=== PATIENT | male | born 1950 | race Caucasian/White ===

== ENCOUNTER → 2021-05-22 02:03 | Outpatient (CLI) | payer MEDICARE, SELFPAY ==
[2021-05-22 12:59] LABS: SARS-CoV-2 RNA PCR Negative
== END ==
PROVIDERS: PCP Internal Medicine; Visit Provider Surgery
DX: Z01.812 Encounter for preprocedural laboratory examination (principal); Z20.822 Contact with and (suspected) exposure to COVID-19
CPT/HCPCS: C9803; U0003; U0005

== ENCOUNTER 2021-05-22 09:21 | Outpatient (CLI) | payer MEDICARE, SELFPAY ==
[2021-05-22 10:42] LABS: Basophils Percent Auto 0.5 % (0.2-1.2); Eosinophils Absolute Auto 0.3 K/mm3 (0-0.3); Eosinophils Percent Auto 4.6 % (0-4.4); Hematocrit 39.8 % (42.0-52.0); Hemoglobin 12.6 g/dL (14.0-18.0); Immature Granulocyte Absolute 0.02 K/mm3 (0.00-0.031); Immature Granulocyte Percent A 0.3 % (0-0.5); Lymphocytes Absolute Auto 1.21 K/mm3 (0.9-3.2); Lymphocytes Percent Auto 20.6 % (18.3-44.2); Mean Corpuscular HGB Conc 31.7 g/dl (32-36); Mean Corpuscular Hemoglobin 29.9 pg (26-34); Mean Corpuscular Volume 94.3 fl (80-100); Mean Platelet Volume 9.9 fl (7.4-10.4); Monocytes Absolute Auto 0.8 K/mm3 (0.1-0.6); Monocytes Percent Auto 13.1 % (2.6-8.5); Neutrophils Absolute Auto 3.6 K/mm3 (1.3-6.7); Neutrophils Percent Auto 60.9 % (45.5-73.1); Platelet Count Result 300 k/mm3 (150-375); Red Blood Count 4.22 M/mm3 (4.6-6.20); Red Cell Distribution Width 14.6 % (11.5-14.5); White Blood Count 5.9 K/mm3 (4.5-10.0)
[2021-05-22 10:54] LABS: INR 1.1; Partial Thromboplastin Time 28.1 SECONDS (22.3-36.8); Prothrombin Time 13.5 Seconds (11.1-14.7)
== END 2021-05-22 09:22 | disposition home or self-care (01) ==
LOC: ANHSURGERY 09:27
PROVIDERS: PCP Internal Medicine; Visit Provider Surgery
DX: Z01.818 Encounter for other preprocedural examination (principal); C32.9 Malignant neoplasm of larynx, unspecified
CPT/HCPCS: 36415; 85025; 85610; 85730; C9803; U0003; U0005

== ENCOUNTER 2021-05-25 00:56 | Day surgery (SDC) | payer MEDICARE, SELFPAY ==
[2021-05-18 13:49] VITALS: BMI 26.6
--- NOTE | 2021-05-18 14:05 | PC.NURSE ---
Report to the Outpatient Waiting Room, entrance under the green pavilion located off [facility], at time _0630_ on date _05/25/21_. OR Time: _0830_. - You and your visitor will be asked a series of questions to screen for COVID 19 for your protection. - A mask is required within the hospital. One visitor will be allowed to accompany the patient into the hospital. Patients visitor will be instructed to remain with patient at all times or leave the building. We will allow the visitor to come back to the postoperative area when patient is ready. Preoperative COVID Testing Requirements: COVID TEST SCHEDULED FOR 05/22/21 @ 0930 A COVID test must be conducted within 72 hours of surgery and patient is asked to isolate self from time of testing until procedure. You will go to the [facility] for your COVID testing. The [facility] Testing site is located at the corner of [address] [facility]. You will only be called if COVID results are positive and your surgeon may reschedule your elective surgery date. Patients may have clear liquids (water, carbonated beverages, clear teas, apple juice) until 3 hours prior to surgery with a maximum of 20 ounces. - No food from midnight until time of surgery Take the following medications with a SIP of water the morning of surgery _NONE__ Medications to discontinue per physician ___N/A__ Please no deodorant, or body powder the day of surgery. No jewelry (including any body piercings) or valuables the day of surgery, leave them at home. Please take a shower or bath the night before, or the morning of, surgery with an antibacterial soap. Wear comfortable, loose fitting clothing. - Jewelry must be removed prior to entering the operating room. Rings and piercings that are not removed may be cut off. - The hospital will not accept responsibility for valuables. - Please leave all valuables, including medications, at home the day of surgery. If you are going home after surgery, a licensed charter bus driver must drive you home. - NO public transportation without another adult. - We recommend that an adult stay with you for 24 hours following discharge. - We also recommend that you do not drive, make important decision, drink alcoholic beverages, or take any drugs that were not prescribed by your health care provider for at least 24 hours after your discharge time. One visitor will be allowed to accompany the patient into the hospital. Patients visitor will be instructed to remain with patient at all times or leave the building. We will allow the visitor to come back to the postoperative area when patient is ready. Follow any additional instructions given to you from your surgeon. Telephone instructions given to ___PT and asked if any additional questions and then verbalized understanding. Patient advised to call surgeon office or pre surgery nurse liaison [phone] if any additional questions.
--- NOTE | ~2021-05-25 | XR_ITS ---
EXAMINATION: XR chest port-a-cath/central DATE: 05/25/2021 08:29 INDICATION: Port placement TECHNIQUE: A single frontal view of the chest was obtained. COMPARISON: None. FINDINGS: There are airspace opacities in right lower lung zone. No pleural effusion or pneumothorax. The heart size is normal. There is a right internal jugular port with tip is at superior cavoatrial junction. IMPRESSION: 1. Port tip at superior cavoatrial junction. 2. Airspace opacities in right lower lung zone, consistent with atelectasis versus pneumonia. Reviewed, dictated and finalized at location A. IMPRESSION: 1. Port tip at superior cavoatrial junction. 2. Airspace opacities in right lower lung zone, consistent with atelectasis nahid iain pneumonia.
--- NOTE | ~2021-05-25 | XR_ITS ---
EXAMINATION: XR fl guide central line place DATE: 05/25/2021 08:13 INDICATION: Port catheter insertion TECHNIQUE: A single fluoroscopic image of the right upper chest was obtained during procedure perform ed by Dr. Casillas. Radiologist was not present for the imaging or procedure. The amount of fluoroscop y time used during this procedure was 0.6 minutes. COMPARISON: None. FINDINGS: Right internal jugular central venous port catheter with distal tip at the caudal superior vena cava. Visualized right lung is clear. No pneumothorax. IMPRESSION: 1. Fluoroscopy utilized during right internal jugular central venous port catheter placement with dis sindi tip at the caudal superior vena cava. Reviewed, dictated and finalized at location A. IMPRESSION: 1. Fluoroscopy utilized during right internal jugular central venous port leti ter placement with distal tip at the caudal superior vena cava.
[2021-05-25 06:13] VITALS: BP 120/76; PULSE 63; RESP 16; TEMP 36.6; O2SAT 98
--- NOTE | 2021-05-25 06:37 | P.PNAN_ITS ---
Anes - Initial Pre Proc Eval Procedure: Operation Date: 05/25/21 07:30 Proposed Procedures p Insertion Jey Cath - Trevor Casillas MD Date/Time: 05/25/21 06:37 Surgeon: Trevor Casillas MD Pre Op Diagnosis: laryngeal cancer Patient Data Age: 71 Gender: M Height: 1.78 m Weight: 84.3 kg Last Vital Signs Temp 36.6 C 05/25/21 06:13 Pulse 63 05/25/21 06:13 Resp 16 05/25/21 06:13 BP 120/76 05/25/21 06:13 Pulse Ox 98 05/25/21 06:13 Allergies Allergy/AdvReac Type Severity Reaction Status Date / Time No Known Allergies Allergy Verified 05/25/21 06:02 Home Medications Medication Instructions Recorded Confirmed Type allopurinol 300 mg PO DAILY 05/03/21 05/25/21 History aspirin [Aspirin Low Dose] 81 mg PO DAILY 05/03/21 05/25/21 History lisinopril 20 mg PO DAILY 05/03/21 05/25/21 History Patient hx anesthesia problems: none Family hx anesthesia problems: none Results Review: All pre-operative results and documents have been reviewed as part of the pre-operative evaluation. [facility] Past Medical History Medical History (Updated 05/25/21 @ 06:37 by Calvin Ferrell MD) COPD (chronic obstructive pulmonary disease) ETOH abuse Laryngeal cancer Surgical History Surgical History (Updated 05/25/21 @ 06:37 by Calvin Ferrell MD) Hx of tonsillectomy Social History Social History Smoking packs per day: 1 Smoking cigarettes per day: 20.0 Years smoked: 30 Smoking pack-years: 30.00 Smoking status: Former smoker Tobacco type: cigarettes Second hand tobacco smoke exposure: No Additional smoking assessment comments: STATES QUIT APR 2021 Alcohol intake: current Drinks per week: 24 Alcohol use details: BEER Substance use: never Substance use type: does not use Living arrangements: with family Spiritual care concerns: No Anes - Eval Final PreProcedure Day of Procedure 05/25/21 06:37 Patient weight: overweight Heart: regular rate and rhythm Lungs: clear to auscultation Airway: Mallampati scale class II Neurological: alert and oriented Last oral intake: >/= 8 hours ASA classification: III Anesthetic plan: proceed Anesthesia type and monitoring: general GIVS and standard monitoring Results Review: All pre-operative results and documents have been reviewed as part of the pre-operative evaluation. Informed Consent: The patient's anesthetic plan and its attendant risks and benefits were discussed with the patient/family/POA. Questions were solicited and answers provided to the satisfaction of the patient/family/POA.
[2021-05-25] MEDS: KETOROLAC 15 MG/ML VIAL (*BKC) IV PUSH (06:52)
[2021-05-25] MEDS: LACTATED RINGERS 1,000 ML 30 ML IV CONT (06:52)
--- NOTE | 2021-05-25 06:58 | PM.HPGS ---
History of Present Illness History of Present Illness Consent: Risks, benefits, and alternatives of placement of a Port-A-Cath have been discussed and questions answered. Patient agrees to proceed with procedure. 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 Mr. Iverson admits to hoarseness that began in mid-summer 2020. He was originally treated with Medrol dose pack for laryngitis and omeprazole for reflux, but the hoarseness did not improve. In office evaluation showed that vocal cord mobility was not impaired. Direct microlaryngoscopy performed 04/10/2021 showed a left vocal cord lesion with subglottic extension. Leukoplakia was stripped off of the left vocal cord. Leukoplakia was noted and stripped off of the right vocal cord. Biopsy of the right and left true vocal cords performed 04/10/2021 showed invasive squamous cell carcinoma. Karl was staged with a PET/CT scan on 04/24/2021 that showed abnormal FDG avidity with SUV of 5.5 in the vocal cords anteriorly crossing the anterior commissure. There was no supraclavicular or cervical lymphadenopathy. There was no evidence of distant metastasis. At present, the pt. is quite hoarse, but he denies pain. He has no trouble swallowing. He has no cough or SOB. Review of Systems Constitutional: Constitutional: Reports no additional constitutional complaints, Reports fatigue and Denies malaise Eyes: Eyes: Denies change in vision and Denies loss of vision ENT: Reports Normal hearing present, Denies change in voice, Denies dizziness, Reports hoarseness ( As above in HPI.) and Denies sore throat Cardiovascular: Cardiovascular: Denies chest pain, Denies leg edema and Denies dyspnea Respiratory: Respiratory: Denies cough, Denies dyspnea and Denies wheezing Gastrointestinal: Gastrointestinal: Denies hematochezia, Denies change in bowel habits and Denies heartburn Genitourinary: Genitourinary: Denies urinary frequency and Denies urinary incontinence Neurologic: Reports Normal hearing present, Denies confusion, Denies dizziness, Denies loss of vision, Denies memory loss and Denies seizure-like activity Psychiatric: Psychiatric: Denies confusion, Denies depression and Denies memory loss Endocrine: Endocrine: Denies cold intolerance and Reports fatigue Hematologic/Lymphatic: Hematologic/Lymphatic: Denies easy bleeding and Denies easy bruising Allergic/Immunologic: Allergic/Immunologic: Denies wheezing PMFSH Past Medical History Medical History (Updated 05/25/21 @ 08:22 by Trevor Casillas MD) COPD (chronic obstructive pulmonary disease) ETOH abuse Laryngeal cancer (~03/2021) Surgical History Surgical History (Updated 05/25/21 @ 06:37 by Calvin Ferrell MD) Hx of tonsillectomy Social History Social History Smoking packs per day: 1 Smoking cigarettes per day: 20.0 Years smoked: 30 Smoking pack-years: 30.00 Smoking status: Former smoker Tobacco type: cigarettes Second hand tobacco smoke exposure: No Additional smoking assessment comments: STATES QUIT APR 2021 Alcohol intake: current Drinks per week: 24 Alcohol use details: BEER Substance use: never Substance use type: does not use Living arrangements: with family Spiritual care concerns: No Meds Home Medications and Allergies Home Medications Medication Instructions Recorded Confirmed Type allopurinol 300 mg PO DAILY 05/03/21 05/25/21 History aspirin [Aspirin Low Dose] 81 mg PO DAILY 05/03/21 05/25/21 History lisinopril 20 mg PO DAILY 05/03/21 05/25/21 History hydrocodone-acetaminophen 1 tablet PO Q6H PRN #10 tablet 05/25/21 Rx Allergies Allergy/AdvReac Type Severity Reaction Status Date / Time No Known Allergies Allergy Verified 05/25/21 06:02 Vital Signs Vital Signs - 24 hr 05/25/21
--- NOTE | 2021-05-25 07:20 | WPDHPUPDATE1 ---
History and Physical Update Update Date/Time: 05/25/21 07:20 History and Physical has been reviewed, including an updated exam of the patient. There are NO changes in the patient's condition. Risks, benefits, and alternatives have been discussed and questions answered. Patient agrees to proceed with procedure.
[2021-05-25] MEDS: ceFAZolin 2 GM/D5W 50 ML 2 GM/50 ML BAG IVPB (07:24)
[2021-05-25] MEDS: BUPIVACAINE/EPINEPHRINE 0.25% 10 ML VIAL 20 ML INFILTRATE (07:45)
[2021-05-25] MEDS: HEPARIN SODIUM 5,000 UNITS/ML VIAL 5000 UNITS IRRIGATION (07:46)
[2021-05-25 08:15] VITALS: BP 89/51; PULSE 49; RESP 12; O2SAT 99
--- NOTE | 2021-05-25 08:28 | W.PM.PROC2 ---
Procedure Note - Detailed Date of Procedure 05/25/21 Pre-op Diagnosis laryngeal cancer Post-op Diagnosis Same Procedure Performed Ultrasound guided Placement of Jey-cath Surgeon Trevor Casillas MD Ampoule Filler Blanca FONSECA.OR health education assistant Anesthesia Local (with 0.25% Marcaine with epinepherine) and Other (GIVS) Indications Patient has T2, N0 pharyngeal carcinoma and is planning chemo and radiation. Findings Normal appearing vascular anatomy in the right neck. Description of Procedure Patient was seen and marked in the pre-op area prior to coming to the OR. Patient was brought to the operating room. Patient was placed supine on the operating table and general IV sedation was induced. The nurse finisher fiberglass boat parts provided oxygen and IV sedation. Patient's head was carefully turned to the left side while in the supine position and the patient's entire neck and anterior chest on both sides was prepped and draped in the usual sterile fashion. Following this the appropriate time-out was completed confirming procedure and patient. We confirmed that all the needed equipment was present in the room. Following this the ultrasound probe was draped into the field and using the probe we carefully identified the carotid artery and jugular vein on the right neck. We then took a picture of the vascular anatomy of the neck and transferred from the ultrasound to the [employer] chart. I marked the skin directly over the Rt. internal jugular vein. I then used an 11 blade knife to make a small donavon in the skin. Following this, using the continuous ultrasound guidance, a Cook needle was placed through the skin incision and on into this vein. I then was able to draw back good dark blood. Once this was completed a guidewire using a J-tip was advanced through the needle and then the needle and the guidewire cover were withdrawn. C-arm fluoroscopy was used to confirm that the guidewire was nicely in the venous system. Once this was confirmed with the C - arm, I preceded on by making the pocket for the port on the patient's anterior right chest approximately 3 centimeters below the clavicle overlying the chest wall. Local anesthetic was infiltrated into the skin where there was a transverse incision marked out. Incision was made and we made a pocket inferior to the incision with just a little dissection superior. The Bard low-profile port was tried in the pocket and seemed to fit well. Following this the catheter which had been placed on a tunneling device was tunneled from the port site on the anterior right chest up to the right neck where the small incision had been made slightly larger with an #11 blade knife. Then the catheter was pulled through so that we would have 15 centimeters to put into the central venous system once the dilation took place. Following this we placed the dilator and sheath over the guidewire in the jugular vein and carefully dilated the tract into the central venous system. The guidewire and dilator were then removed, carefully covering the end of the sheath to prevent air embolus. The end of the catheter which had been removed from the tunneling device and the tip checked was then inserted into the sheath and into the neck. I then carefully pulled the 2 arms of the tear-away sheath away as the human resources assistant held the catheter in position with a DeBakey forceps. Following this we checked the position of the catheter with C-arm fluoroscopy confirming that the tip seemed to be in the distal superior vena cava near the junction with the right atrium. I felt that it was in good position and so the rest of the catheter was pulled down toward the feet into the port site. We then measured to the appropriate position to cut the catheter to attach it to the port stem. Then the connector sealing device for the catheter port was placed onto the catheter and then the catheter cut to the appropriate length and inserted onto the stem of the port. Then the connector was ad
[2021-05-25 08:45] VITALS: BP 99/56; PULSE 46; RESP 12; O2SAT 98
[2021-05-25 09:15] VITALS: BP 114/65; PULSE 45; RESP 12
[2021-05-25 09:30] VITALS: BP 122/71; PULSE 45; RESP 12
== END 2021-05-25 09:39 | disposition home or self-care (01) ==
PROVIDERS: PCP Internal Medicine; Visit Provider Surgery
PROC: (CPT 36561; principal; 2021-05-25 07:30)
DX: C32.9 Malignant neoplasm of larynx, unspecified (principal); J44.9 Chronic obstructive pulmonary disease, unspecified; Z87.891 Personal history of nicotine dependence; Z79.82 Long term (current) use of aspirin
CPT/HCPCS: 36561; 36415; 77001; 85025; 85610; 85730; C1788; C9803; J0690; J1644; J1885; J2250; J2704; J3010; J7030; J7120; U0003; U0005

== ENCOUNTER 2021-08-17 09:39 | Outpatient (CLI) | payer MEDICARE, SELFPAY ==
--- NOTE | ~2021-08-17 | CT_ITS ---
EXAMINATION: CT soft tissue neck wo con DATE: 08/17/2021 10:02 INDICATION: Cancer of glottis. TECHNIQUE: Computed tomography (CT) of the neck was performed without intravenous contrast. Automated exposure control and iterative reconstruction technique were employed. The dose-length product was 6 61.63 mGy-cm. COMPARISON: None FINDINGS: There is mild emphysema. Calcified right lung nodules and calcified mediastinal lymph nodes are consistent with old granulomatous disease. There is a 3 mm nodule in left upper lobe, likely lashell ign. Partially visualized is a right internal jugular port. There are coronary artery calcifications. There are no pathologically enlarged lymph nodes. There is mild mucosal thickening in the paranasal sinuses. There are changes of right mastoidectomy. There is moderate cervical and thoracic spondylosi s. IMPRESSION: 1. No specific evidence of malignancy. Reviewed, dictated and finalized at location A.
== END 2021-08-17 09:40 | disposition home or self-care (01) ==
PROVIDERS: PCP Internal Medicine; Visit Provider Internal Medicine Hematology & Oncology
DX: C32.0 Malignant neoplasm of glottis (principal)
CPT/HCPCS: 70490

== ENCOUNTER 2021-11-09 10:01 | Outpatient (CLI) | payer MEDICARE, SELFPAY ==
--- NOTE | ~2021-11-09 | CT_ITS ---
EXAMINATION: CT soft tissue neck wo con DATE: 11/09/2021 10:26 INDICATION: Cancer glottis. TECHNIQUE: Computed tomography (CT) of the neck was performed without intravenous contrast. Automated exposure control and iterative reconstruction technique were employed. The dose-length product was 5 45.56 mGy-cm. COMPARISON: Neck CT 08/17/2021 FINDINGS: There is mild emphysema. A calcified right lung nodule is consistent with old granulomatous disease. Partially visualized is a right internal jugular port. There are no pathologically enlarged lymph nodes. There is an old blowout fracture of medial wall of the right orbit. There is mild mucos al thickening in the ethmoid sinuses. There are changes of right mastoidectomy. There is moderate cer vical spondylosis. IMPRESSION: 1. No specific evidence of malignancy. Reviewed, dictated and finalized at location A.
== END 2021-11-09 10:02 | disposition home or self-care (01) ==
LOC: ANHIMG 10:05
PROVIDERS: PCP Internal Medicine; Visit Provider Internal Medicine Hematology & Oncology
DX: C32.0 Malignant neoplasm of glottis (principal)
CPT/HCPCS: 70490

== ENCOUNTER 2022-03-25 08:20 | Outpatient (CLI) | payer MEDICARE, SELFPAY ==
--- NOTE | ~2022-03-25 | CT_ITS ---
EXAMINATION: CT soft tissue neck wo con DATE: 03/25/2022 08:52 INDICATION: Cancer of glottis. TECHNIQUE: Computed tomography (CT) of the neck was performed without intravenous contrast. Automated exposure control and iterative reconstruction technique were employed. The dose-length product was 5 35.49 mGy-cm. COMPARISON: Neck CT 11/09/2021 FINDINGS: There is mild emphysema. There is a right internal jugular port with tip not included. Ther e are no pathologically enlarged lymph nodes. There is mild mucosal thickening in the paranasal sinus es. There is an old blowout fracture of medial wall of right orbit. There are changes of right mastoi dectomy. There is moderate cervical spondylosis. There is developmental anterior and posterior fusion at T1-T2. IMPRESSION: 1. No evidence of malignancy. Reviewed, dictated and finalized at location A. [employer]
== END 2022-03-25 08:21 | disposition home or self-care (01) ==
PROVIDERS: PCP Internal Medicine; Visit Provider Internal Medicine Hematology & Oncology
DX: C32.0 Malignant neoplasm of glottis (principal)
CPT/HCPCS: 70490

== ENCOUNTER 2022-09-16 08:18 | Outpatient (CLI) | payer MEDICARE, SELFPAY ==
--- NOTE | ~2022-09-16 | CT_ITS ---
EXAMINATION: CT soft tissue neck w con DATE: 09/16/2022 09:07 INDICATION: Cancer of the glottis TECHNIQUE: Computed tomography (CT) of the neck was performed with 75 mL Omnipaque-350 intravenous co ntrast. Automated exposure control and iterative reconstruction technique were employed. The dose-laura gth product was 514.16 mGy-cm. COMPARISON: 03/25/2022 FINDINGS: Mild emphysema in the visualized upper lungs. Aortic arch is normal caliber with no dissection. Ather osclerotic plaque at the bilateral carotid bulbs with 50% stenosis on the left and 30% stenosis on th e right relative to normal distal artery lumen diameter (NASCET criteria). Left vertebral artery is d ominant. Right internal jugular central venous port catheter with distal tip extending into the super ior vena cava and beyond the inferior margin of imaging. No pathologically enlarged cervical or upper thoracic lymphadenopathy. The thyroid gland and bilateral submandibular and parotid glands are kyaw l. Minimal scattered cortical thickening in the paranasal sinuses with change of bilateral antral win jessenia procedures. Chronic blowout fracture of the medial wall of the right orbit. Changes of bilateral intraocular lens replacement. Status post right mastoidectomy. Moderate cervical spondylosis. Develop mental anterior and posterior fusion at T1-T2. IMPRESSION: 1. No evident malignancy/metastatic disease. Reviewed, dictated and finalized at location A.
[2022-09-16 08:56] LABS: Estimated Glomerular Filt Rate 50
== END 2022-09-16 08:19 | disposition home or self-care (01) ==
PROVIDERS: PCP Internal Medicine; Visit Provider Internal Medicine Hematology & Oncology
DX: C32.0 Malignant neoplasm of glottis (principal)
CPT/HCPCS: 70491; Q9967

== ENCOUNTER 2022-10-07 00:11 | Day surgery (SDC) | payer MEDICARE, SELFPAY ==
--- NOTE | 2022-09-30 13:36 | PC.NURSE ---
Report to the Outpatient Waiting Room, entrance under the green pavilion located off [facility], at time 0600 on date _10/07/22 . Planned Procedure Time: _0730 . Time changes happen often and if your time is changed the preop area will call you the afternoon before. - You and your visitor will be asked to self-screen and do not enter if you have any COVID symptoms. - A mask is optional within the hospital at this time. Patients may have clear liquids (water, carbonated beverages, clear teas, apple juice) until 3 hours prior to surgery with a maximum of 20 ounces. - No food from midnight until time of surgery - Infants may have breast milk until 4 hours before surgery, infant formula 6 hours prior to surgery. - Children will be allowed to drink immediately following surgery. If applicable, please bring a bottle or sippy cup to assist with drinking. Juice, water, soda, and popsicles are readily available. For infants on formula, please bring formula the day of surgery. Pacifiers are allowed. Take the following medications with a SIP of water the morning of surgery: __NONE DO NOT STOP ANY OF YOUR OTHER PRESCRIPTION MEDICATIONS PRIOR TO SURGERY ?EXCEPT THE FOLLOWING Medications to discontinue per physician NONE Date to take last dose Please no make-up, nail swedish, hairspray, perfume, deodorant, or body powder the day of surgery. No jewelry (including any body piercings) or valuables the day of surgery, leave them at home. Please take a shower or bath the night before, or the morning of, surgery with an antibacterial soap. Wear comfortable, loose fitting clothing. Children are encouraged to wear pajamas. - Jewelry must be removed prior to entering the operating room. Rings and piercings that are not removed may be cut off. - The hospital will not accept responsibility for valuables. - Please leave all valuables, including medications, at home the day of surgery. If you are going home after surgery, a licensed tractor driver teamster must drive you home. - NO public transportation without another adult if you receive anesthesia. - We recommend that an adult stay with you for 24 hours following discharge. - We also recommend that you do not drive, make important decision, drink alcoholic beverages, or take any drugs that were not prescribed by your health care provider for at least 24 hours after your discharge time. For Pediatric surgeries, we recommend two adults accompany the child home. Follow any additional instructions given to you from your surgeon. If you or anyone in your household have experienced Covid symptoms in the past week, please notify your surgeon or the nurse liaison at the phone number below for possible testing. Telephone instructions given to __PT'S PADMA and asked if any additional questions and then verbalized understanding. Patient advised to call surgeon office or pre surgery nurse liaison [phone] if any additional questions.
[2022-09-30 13:45] VITALS: BMI 25.1
[2022-10-07] MEDS: LACTATED RINGERS 1,000 ML 30 ML IV CONT (07:00)
--- NOTE | 2022-10-07 07:15 | WPDANESEPPF ---
Anes - Initial Pre Proc Eval Procedure: Operation Date: 10/07/22 07:30 Proposed Procedures p Removal Jey Cath - Alden Draper MD Date/Time: 10/07/22 07:15 Surgeon: Alden Draper MD Pre Op Diagnosis: CA of glottis Patient Data Age: 72 Gender: M Height: 1.78 m Weight: 79.4 kg Allergies Allergy/AdvReac Type Severity Reaction Status Date / Time No Known Allergies Allergy Verified 09/30/22 13:27 Home Medications Medication Instructions Recorded Confirmed Type aspirin 81 mg tablet,delayed 81 mg PO DAILY 05/03/21 09/30/22 History release (Yariel Low Dose Aspirin) lisinopril 20 mg tablet 20 mg PO DAILY 05/03/21 09/30/22 History pantoprazole 40 mg tablet,delayed 40 mg PO DAILY 09/30/22 09/30/22 History release Patient hx anesthesia problems: none Family hx anesthesia problems: none Results Review: All pre-operative results and documents have been reviewed as part of the pre-operative evaluation. [facility] Past Medical History Medical History (Updated 10/04/22 @ 14:21 by Lazaro Clifford DO) COPD (chronic obstructive pulmonary disease) ETOH abuse GERD (gastroesophageal reflux disease) Gout Hypertension Laryngeal cancer (~03/2021) chemo/radiation 2021 Surgical History Surgical History (Updated 05/31/21 @ 09:48 by Hailee Navarro Mai, MD) Hx of tonsillectomy Social History Social History Smoking packs per day: 1 Smoking cigarettes per day: 20.0 Years smoked: 35 Smoking pack-years: 35.00 Smoking status: Current every day smoker Tobacco type: cigarettes Second hand tobacco smoke exposure: No Additional smoking assessment comments: STATES QUIT APR 2021 Alcohol intake: current Drinks per week: 24 Alcohol use details: BEER Substance use: never Substance use type: does not use Living arrangements: with family Spiritual care concerns: No Anes - Eval Final PreProcedure Day of Procedure 10/07/22 07:15 Patient weight: normal Heart: regular rate and rhythm Lungs: clear to auscultation Airway: Mallampati scale class II Neurological: alert and oriented Last oral intake: >/= 8 hours ASA classification: III Emergent: no Anesthetic plan: proceed Anesthesia type and monitoring: general GIVS and standard monitoring Results Review: All pre-operative results and documents have been reviewed as part of the pre-operative evaluation. Informed Consent: The patient's anesthetic plan and its attendant risks and benefits were discussed with the patient/family/POA. Questions were solicited and answers provided to the satisfaction of the patient/family/POA.
--- NOTE | 2022-10-07 07:26 | PM.IMHP ---
H&P: HPI History of Present Illness Date/Time: 10/07/22 07:26 Chief Complaint: Need to have port removed Narrative: Pt with right IJ port placed for chemo tx for neck CA. Now done with therapy. Review of Systems Review of Systems: The remainder of the review of systems to include constitutional, HEENT, cardiovascular, respiratory, GI, , integumentary, musculoskeletal, endocrine, immunologic, hematologic, psychiatric, and neurologic are all negative except for which is mentioned above in the HPI. [facility] Past Medical History Medical History COPD (chronic obstructive pulmonary disease) ETOH abuse GERD (gastroesophageal reflux disease) Gout Hypertension Laryngeal cancer (~03/2021) chemo/radiation 2021 Surgical History Surgical History Hx of tonsillectomy Social History Social History Smoking packs per day: 1 Smoking cigarettes per day: 20.0 Years smoked: 35 Smoking pack-years: 35.00 Smoking status: Current every day smoker Tobacco type: cigarettes Second hand tobacco smoke exposure: No Additional smoking assessment comments: STATES QUIT APR 2021 Alcohol intake: current Drinks per week: 24 Alcohol use details: BEER Substance use: never Substance use type: does not use Living arrangements: with family Spiritual care concerns: No Meds Home Medications and Allergies Home Medications Medication Instructions Recorded Confirmed Type aspirin 81 mg tablet,delayed 81 mg PO DAILY 05/03/21 09/30/22 History release (Yariel Low Dose Aspirin) lisinopril 20 mg tablet 20 mg PO DAILY 05/03/21 09/30/22 History pantoprazole 40 mg tablet,delayed 40 mg PO DAILY 09/30/22 09/30/22 History release Allergies Allergy/AdvReac Type Severity Reaction Status Date / Time No Known Allergies Allergy Verified 10/07/22 07:41 Exam Const: General: comfortable and no acute distress Eyes: Sclera: sclerae normal Pupils: Equal, round and reactive pupils present EOM: EOMs intact bilaterally Neck: Neck: supple and no JVD Resp: Effort & Inspection: normal respiratory effort Auscultation: clear to auscultation bilaterally Cardio: Rate: regular rate Rhythm: regular rhythm GI: GI Palp: Yes Soft to palpation, No Firmness to palpation present (GI), No Tenderness to palpation present (GI), No Guarding due to palpation present (GI) and No Hernia present Skin: Other: right chest port, no redness, no rash Neuro: General: gait normal Speech: normal speech Motor exam (neuro): 5/5 motor strength present throughout Sensory Exam: normal sensation Extrem: General: normal to inspection Psych: Mental Status: mental status grossly normal Affect: normal affect Assessment and Plan Assessment and plan (1) Malignant neoplasm of larynx, unspecified: Code(s): C32.9 - Malignant neoplasm of larynx, unspecified Status: Acute Assessment and Plan: treatment complete (2) Port-A-Cath in place: Code(s): Z95.828 - Presence of other vascular implants and grafts Status: Acute Assessment and Plan: plan to remove portacatheter today.
--- NOTE | 2022-10-07 07:29 | WPDHPUPDATE1 ---
History and Physical Update Update Date/Time: 10/07/22 07:29 History and Physical has been reviewed, including an updated exam of the patient. There are NO changes in the patient's condition. Risks, benefits, and alternatives have been discussed and questions answered. Patient agrees to proceed with procedure.
[2022-10-07] MEDS: ceFAZolin 2 GM/D5W 50 ML 2 GM/50 ML BAG IVPB (07:34)
[2022-10-07 07:36] VITALS: BP 131/78; PULSE 54; RESP 14; TEMP 36.2; O2SAT 100
[2022-10-07] MEDS: LIDO 1%/EPINEPHRINE 1:100,000 50 ML VIAL 30 ML INFILTRATE (07:49)
[2022-10-07] MEDS: BUPivacaine HCL 0.5% 10 ML AMP 30 ML INFILTRATE (07:50)
[2022-10-07 08:17] VITALS: BP 119/65; PULSE 54; RESP 16; O2SAT 96
--- NOTE | 2022-10-07 08:31 | W.PM.PROC2 ---
Procedure Note - Detailed Date of Procedure 10/07/22 Pre-op Diagnosis CA of glottis Post-op Diagnosis Same Procedure Performed Removal of right internal jugular vein single-lumen port a catheter. Surgeon Alden Draper MD Anesthesia MAC Indications Patient is a 2-year-old gentleman last general treatment for laryngeal cancer. He is now done with treatment and no longer needs his caren catheter. He presents now for removal of the caren catheter. Findings None Description of Procedure After informed consent was obtained patient brought to the operating room was placed supine position and then IV sedation was administered by anesthesia. The area the right anterior lateral neck and right upper chest was then prepped and draped in usual sterile fashion. A time-out was then performed correctly identifying the patient as well as procedure to be performed and verified he was given perioperative IV antibiotics. I then injected 1% lidocaine mixed with 0.25% Marcaine around the port and around the intended incision for local anesthetic effect. I then made a small thin elliptical incision to excise out the old scar in the right upper anterior chest wall sharply with the scalpel. I then used electrocautery to then dissect down through the subcutaneous tissues to encounter the port. I then dissected down onto the catheter itself and the free the catheter up from the surrounding tissues. With gentle traction on the catheter I then removed from the right internal jugular vein. Pressure was held on the right internal jugular vein for 3 to 4 minutes to achieve hemostasis. I then fulgurated the fibrous capsule the subcutaneous tissues. I then irrigated sterile saline solution hemostasis was good. I then close incision utilizing interrupted 3-0 Vicryl sutures in subcutaneous tissues. The skin edges were then approximated utilizing a running subcuticular 4 Monocryl suture. The incision was then cleaned and then skin glue applied for dressing. The patient tolerated the procedure well no complications. All sponges, needles, and instrument counts were correct at the end procedure. EBL was _ 5 __cc. The patient was awakened and taken to recovery in stable and satisfactory condition. Implants None Estimated Blood Loss -5.0 Drains No Packing No Pathology None sent Complications No immediate complications Condition Stable Disposition PACU [facility] Billing Surgery - Charge Forward: Surgery Billing
[2022-10-07 08:45] VITALS: BP 113/73; PULSE 53; RESP 16; O2SAT 96
[2022-10-07 09:15] VITALS: BP 154/84; PULSE 47; RESP 14
== END 2022-10-07 09:25 | disposition home or self-care (01) ==
PROVIDERS: PCP Internal Medicine; Visit Provider Surgery
PROC: (CPT 36589; principal; 2022-10-07 07:30)
DX: Z45.2 Encounter for adjustment and management of vascular access device (principal); Z85.21 Personal history of malignant neoplasm of larynx; J44.9 Chronic obstructive pulmonary disease, unspecified; I10 Essential (primary) hypertension; K21.9 Gastro-esophageal reflux disease without esophagitis; Z79.82 Long term (current) use of aspirin; Z92.21 Personal history of antineoplastic chemotherapy; Z92.3 Personal history of irradiation; Z87.891 Personal history of nicotine dependence
CPT/HCPCS: 36590; J0690; J1100; J2405; J2704; J3010; J7120

== ENCOUNTER 2023-01-23 06:49 | Outpatient (CLI) | payer MEDICARE, SELFPAY ==
--- NOTE | ~2023-01-23 | CT_ITS ---
EXAMINATION: CT soft tissue neck w con DATE: 01/23/2023 07:21 INDICATION: Cancer glottis. TECHNIQUE: Computed tomography (CT) of the neck was performed with 75 mL Omnipaque-350 intravenous co ntrast. Automated exposure control and iterative reconstruction technique were employed. The dose-laura gth product was 583.60 mGy-cm. COMPARISON: Neck CT 09/16/2022 FINDINGS: There is mild emphysema. There are likely changes of ocular lens replacement surgeries. The re are no pathologically enlarged lymph nodes. There is plaque in the proximal internal carotid arter ies with less than 50% stenosis on the right relative to normal distal artery lumen diameter and 56% stenosis on the left. There is mucosal thickening at the glottis. There is an old blowout fracture of medial wall of right orbit. There is mild mucosal thickening in the paranasal sinuses. There are venessa nges of right mastoidectomy. There is moderate cervical spondylosis. There is developmental anterior and posterior fusion at T1-T2. IMPRESSION: 1. Stable mucosal thickening at the glottis, consistent with changes of radiation therapy. Reviewed, dictated and finalized at location A. MOTOR OPERATOR IMPRESSION: 1. Stable mucosal thickening at the glottis, consistent with changes of radiati on therapy.
[2023-01-23 07:14] LABS: Estimated Glomerular Filt Rate 43
== END 2023-01-23 06:50 | disposition home or self-care (01) ==
PROVIDERS: PCP Internal Medicine; Visit Provider Internal Medicine Hematology & Oncology
DX: C32.0 Malignant neoplasm of glottis (principal)
CPT/HCPCS: 70491; Q9967

== ENCOUNTER 2023-02-03 09:34 | Outpatient (CLI) | payer MEDICARE, SELFPAY ==
[2023-02-03 09:51] LABS: Basophils Percent Auto 0.4 % (0.2-1.2); Eosinophils Absolute Auto 0.4 K/mm3 (0-0.3); Hematocrit 37.7 % (42.0-52.0); Hemoglobin 11.8 g/dL (14.0-18.0); Immature Granulocyte Absolute 0.02 K/mm3 (0.00-0.031); Immature Granulocyte Percent A 0.4 % (0-0.5); Lymphocytes Absolute Auto 1.21 K/mm3 (0.9-3.2); Lymphocytes Percent Auto 23.4 % (18.3-44.2); Mean Corpuscular HGB Conc 31.3 g/dl (32-36); Mean Corpuscular Volume 86.3 fl (80-100); Mean Platelet Volume 9.4 fl (7.4-10.4); Monocytes Absolute Auto 0.7 K/mm3 (0.1-0.6); Neutrophils Absolute Auto 2.9 K/mm3 (1.3-6.7); Neutrophils Percent Auto 55.8 % (45.5-73.1); Platelet Count Result 300 k/mm3 (150-375); Red Blood Count 4.37 M/mm3 (4.6-6.20); Red Cell Distribution Width 15.3 % (11.5-14.5); White Blood Count 5.2 K/mm3 (4.5-10.0)
[2023-02-03 10:00] LABS: Blood Urea Nitrogen 16 mg/dL (8-26); Carbon Dioxide 28 mmol/L (22-30); Chloride 100 mmol/L (98-109); Estimated Glomerular Filt Rate 46; Glucose 102 mg/dL (70-105); Ionized Calcium (POC) 1.19 mmol/L (1.11-1.31); Sodium 139 mmol/L (138-146)
[2023-02-03 16:55] LABS: Alanine Aminotransferase 14 U/L (6-50); Albumin Level 4.4 g/dL (3.5-5.1); Alkaline Phosphatase 56 U/L (38-126); Anion Gap 9 mmol/L (8-16); Aspartate Amino Transferase 25 U/L (17-59); Bilirubin,Total 0.6 mg/dL (0.2-1.3); Blood Urea Nitrogen 16 mg/dL (9-20); Calcium 9.2 mg/dL (8.4-10.2); Carbon Dioxide 26 mmol/L (22-30); Chloride 101 mmol/L (98-107); Estimated Glomerular Filt Rate 54; Glucose 92 mg/dL (65-110); Potassium 4.1 mmol/L (3.4-5.0); Sodium 136 mmol/L (137-145)
== END 2023-02-03 09:35 | disposition home or self-care (01) ==
LOC: ANHLAB 09:37
PROVIDERS: PCP Internal Medicine; Visit Provider Internal Medicine Hematology & Oncology
DX: C32.0 Malignant neoplasm of glottis (principal)
CPT/HCPCS: 36415; 80047; 80053; 85025

== ENCOUNTER 2023-04-10 09:54 | Outpatient (CLI) | payer MEDICARE, SELFPAY ==
--- NOTE | ~2023-04-10 | CT_ITS ---
EXAMINATION: CT soft tissue neck wo con DATE: 04/10/2023 10:19 INDICATION: Cancer of glottis. TECHNIQUE: Computed tomography (CT) of the neck was performed without intravenous contrast. Automated exposure control and iterative reconstruction technique were employed. The dose-length product was 5 85.90 mGy-cm. COMPARISON: CT neck 01/23/2023 FINDINGS: There is mild emphysema. There are likely changes of ocular lens replacement surgeries. The re is an old blowout fracture of medial wall of right orbit. There is mild mucosal thickening in the paranasal sinuses. There is mucosal thickening in the larynx, likely changes of radiation therapy. Th ere are no pathologically enlarged lymph nodes. There is moderate cervical spondylosis. There is deve lopmental anterior and posterior fusion at T1-T2. IMPRESSION: 1. Stable mucosal thickening in the larynx, consistent with changes of radiation therapy. Reviewed, dictated and finalized at location A. GHT HANDLER IMPRESSION: 1. Stable mucosal thickening in the larynx, consistent with changes of radiatio n therapy.
== END 2023-04-10 09:55 | disposition home or self-care (01) ==
LOC: ANHIMG 09:57
PROVIDERS: PCP Internal Medicine; Visit Provider Internal Medicine Hematology & Oncology
DX: C32.0 Malignant neoplasm of glottis (principal)
CPT/HCPCS: 70490

== ENCOUNTER 2023-04-22 13:03 | Outpatient (CLI) | payer MEDICARE, SELFPAY ==
[2023-04-22 13:14] LABS: Basophils Percent Auto 0.3 % (0.2-1.2); Eosinophils Absolute Auto 0.3 K/mm3 (0-0.3); Eosinophils Percent Auto 4.1 % (0-4.4); Hematocrit 36.1 % (42.0-52.0); Hemoglobin 11.6 g/dL (14.0-18.0); Immature Granulocyte Absolute 0.03 K/mm3 (0.00-0.031); Immature Granulocyte Percent A 0.4 % (0-0.5); Lymphocytes Absolute Auto 0.93 K/mm3 (0.9-3.2); Lymphocytes Percent Auto 13.2 % (18.3-44.2); Mean Corpuscular HGB Conc 32.1 g/dl (32-36); Mean Corpuscular Hemoglobin 27.5 pg (26-34); Mean Corpuscular Volume 85.5 fl (80-100); Mean Platelet Volume 8.9 fl (7.4-10.4); Monocytes Absolute Auto 0.7 K/mm3 (0.1-0.6); Monocytes Percent Auto 10.5 % (2.6-8.5); Neutrophils Absolute Auto 5.1 K/mm3 (1.3-6.7); Neutrophils Percent Auto 71.5 % (45.5-73.1); Platelet Count Result 305 k/mm3 (150-375); Red Blood Count 4.22 M/mm3 (4.6-6.20); Red Cell Distribution Width 16.4 % (11.5-14.5); White Blood Count 7.1 K/mm3 (4.5-10.0)
[2023-04-22 13:19] LABS: Blood Urea Nitrogen 14 mg/dL (8-26); Carbon Dioxide 26 mmol/L (22-30); Chloride 102 mmol/L (98-109); Estimated Glomerular Filt Rate 43; Glucose 95 mg/dL (70-105); Ionized Calcium (POC) 1.13 mmol/L (1.11-1.31); Potassium 3.9 mmol/L (3.5-4.9); Sodium 138 mmol/L (138-146)
[2023-04-22 16:31] LABS: Alanine Aminotransferase 16 U/L (6-50); Albumin Level 4.1 g/dL (3.5-5.1); Alkaline Phosphatase 63 U/L (38-126); Anion Gap 8 mmol/L (8-16); Aspartate Amino Transferase 25 U/L (17-59); Bilirubin,Total 0.6 mg/dL (0.2-1.3); Blood Urea Nitrogen 16 mg/dL (9-20); Calcium 9.2 mg/dL (8.4-10.2); Carbon Dioxide 24 mmol/L (22-30); Chloride 105 mmol/L (98-107); Estimated Glomerular Filt Rate 54; Glucose 96 mg/dL (65-110); Potassium 4.1 mmol/L (3.4-5.0); Sodium 137 mmol/L (137-145)
== END 2023-04-22 13:04 | disposition home or self-care (01) ==
LOC: ANHLAB 13:05
PROVIDERS: PCP Internal Medicine; Visit Provider Internal Medicine Hematology & Oncology
DX: C32.0 Malignant neoplasm of glottis (principal)
CPT/HCPCS: 36415; 80047; 80053; 85025

== ENCOUNTER 2023-10-15 06:51 | Outpatient (CLI) | payer MEDICARE, SELFPAY ==
--- NOTE | ~2023-10-15 | CT_ITS ---
EXAMINATION: CT soft tissue neck wo con DATE: 10/15/2023 07:45 INDICATION: Cancer of glottis. TECHNIQUE: Computed tomography (CT) of the neck was performed without intravenous contrast. Automated exposure control and iterative reconstruction technique were employed. The dose-length product was 5 85.07 mGy-cm. COMPARISON: CT neck 04/10/2023 FINDINGS: There is mild emphysema. A calcified right lung nodule is consistent with old granulomatous disease. There are likely changes of ocular lens replacement surgeries. There is mucosal thickening of the glottis, consistent with changes of radiation therapy. There are no pathologically enlarged ly mph nodes. There is mild mucosal thickening in the paranasal sinuses. There are changes of right mast oidectomy. There is moderate cervical spondylosis. There is developmental anterior and posterior fusi on at T1-T2. IMPRESSION: 1. Stable mucosal thickening of the glottis, consistent with changes of radiation therapy. No evidenc e of metastatic disease. Reviewed, dictated and finalized at location A. IMPRESSION: 1. Stable mucosal thickening of the glottis, consistent with changes of radiati on therapy. No evidence of metastatic disease.
== END 2023-10-15 06:52 | disposition home or self-care (01) ==
PROVIDERS: PCP Internal Medicine; Visit Provider Internal Medicine Hematology & Oncology
DX: C32.0 Malignant neoplasm of glottis (principal)
CPT/HCPCS: 70490

== ENCOUNTER 2023-10-22 12:58 | Outpatient (CLI) | payer MEDICARE, SELFPAY ==
[2023-10-22 13:09] LABS: Basophils Percent Auto 0.3 % (0.2-1.2); Eosinophils Absolute Auto 0.2 K/mm3 (0-0.3); Eosinophils Percent Auto 1.8 % (0-4.4); Hematocrit 37.4 % (42.0-52.0); Hemoglobin 11.9 g/dL (14.0-18.0); Immature Granulocyte Absolute 0.03 K/mm3 (0.00-0.031); Immature Granulocyte Percent A 0.3 % (0-0.5); Lymphocytes Absolute Auto 1.27 K/mm3 (0.9-3.2); Lymphocytes Percent Auto 13.7 % (18.3-44.2); Mean Corpuscular HGB Conc 31.8 g/dl (32-36); Mean Corpuscular Hemoglobin 27.2 pg (26-34); Mean Corpuscular Volume 85.6 fl (80-100); Mean Platelet Volume 8.5 fl (7.4-10.4); Monocytes Percent Auto 10.2 % (2.6-8.5); Neutrophils Absolute Auto 6.8 K/mm3 (1.3-6.7); Neutrophils Percent Auto 73.7 % (45.5-73.1); Platelet Count Result 296 k/mm3 (150-375); Red Blood Count 4.37 M/mm3 (4.6-6.20); Red Cell Distribution Width 16.1 % (11.5-14.5); White Blood Count 9.3 K/mm3 (4.5-10.0)
[2023-10-22 13:13] LABS: Blood Urea Nitrogen 22 mg/dL (8-26); Carbon Dioxide 26 mmol/L (22-30); Chloride 100 mmol/L (98-109); Estimated Glomerular Filt Rate 37; Glucose 87 mg/dL (70-105); Ionized Calcium (POC) 1.18 mmol/L (1.11-1.31); Potassium 3.8 mmol/L (3.5-4.9); Sodium 137 mmol/L (138-146)
[2023-10-22 16:58] LABS: Alanine Aminotransferase 13 U/L (6-50); Albumin Level 4.3 g/dL (3.5-5.1); Alkaline Phosphatase 61 U/L (38-126); Anion Gap 9 mmol/L (4-12); Aspartate Amino Transferase 24 U/L (17-59); Bilirubin,Total 0.7 mg/dL (0.2-1.3); Blood Urea Nitrogen 21 mg/dL (9-20); Calcium 9.4 mg/dL (8.4-10.2); Carbon Dioxide 26 mmol/L (22-30); Chloride 100 mmol/L (98-107); Estimated Glomerular Filt Rate 43; Glucose 86 mg/dL (65-110); Potassium 3.9 mmol/L (3.4-5.0); Sodium 135 mmol/L (137-145)
== END 2023-10-22 12:59 | disposition home or self-care (01) ==
LOC: ANHLAB 13:00
PROVIDERS: PCP Internal Medicine; Visit Provider Internal Medicine Hematology & Oncology
DX: C32.0 Malignant neoplasm of glottis (principal)
CPT/HCPCS: 36415; 80047; 80053; 85025

== ENCOUNTER 2024-04-19 06:38 | Outpatient (CLI) | payer MEDICARE, SELFPAY ==
--- NOTE | ~2024-04-19 | CT_ITS ---
EXAMINATION: CT soft tissue neck wo con DATE: 04/19/2024 07:00 INDICATION: Cancer glottis. TECHNIQUE: Computed tomography (CT) of the neck was performed without intravenous contrast. Automated exposure control and iterative reconstruction technique were employed. The dose-length product was 4 35.29 mGy-cm. COMPARISON: CT neck 10/15/23 FINDINGS: There is mild emphysema. There are likely changes of ocular lens replacement surgeries. The re is an old blowout fracture of medial wall of right orbit. There is mucosal thickening in the paran flavio sinuses. There is mucosal thickening of the larynx. There are no pathologically enlarged lymph n odes. There are changes of right mastoidectomy. There is a broken left mandibular molar with periapi alonzo lucencies. There is moderate cervical spondylosis. There is developmental anterior and posterior fusion at T1-T2. IMPRESSION: 1. Mucosal thickening of the larynx again seen, consistent with changes of radiation therapy. No evid ence of metastatic disease. Reviewed, dictated and finalized at location A. TICS SOFTWARE ENGINEER IMPRESSION: 1. Mucosal thickening of the larynx again seen, consistent with changes of radi ation therapy. No evidence of metastatic disease.
--- OUTSIDE RECORDS SUMMARY | 2024-04-19 06:42 | XMS_ITS | Encounter Summary ---
Author Organization [facility] Address [address] [place] [address] Care Team Providers Care Retail Leader Name Role Phone Mitch Kinsey MD Primary Care Provider [phone] Encounter Details Date Type Department Care Team (Late Contact Info) Description 05/11/2021 Chart Note [facility] Radiation Therapy [address] [place] [address] Virgilio Bagley MD [address] [facility] [address] [place] [address] Social History Tobacco Use Types Packs/Day Years Used Date Smoking Tobacco: Never Assessed Sex and Gender Information Value Date Recorded Sex Assigned at Not on file Legal Sex Male 2:37 PM SPONGE PACKER Gender Identity Not on file Sexual Orientation Not on file COVID-19 Exposure Response Date Recorded In the last month, have you been in contact with someone who was confirmed or suspected to have Coronavirus / COVID-19? No / Unsure 04/27/2021 10:58 AM SPONGE PACKER documented as of this encounter Plan of Treatment Upcoming Encounters Date Type Department Care Team (Late Contact Info) Description 04/26/2024 2:45 PM SPONGE PACKER Office Visit [facility] Oncology and Hematology - [place] [address] [place] [address] Erick Ayers MD [address] [facility] [address] [place] [address] documented as of this encounter Visit Diagnoses Not on filedocumented in this encounter Care Teams Retail Leader Relationship Specialty Start Date End Date Mitch Kinsey MD [address] [phone] PCP - General Internal Medicine 04/19/21 documented as of this encounter
--- OUTSIDE RECORDS SUMMARY | 2024-04-19 06:42 | XMS_ITS | Clinical Summary ---
Author Organization [facility] Address [address] [place] [address] Phone Care Team Providers Care Clinical Practice Consultant Name Role Phone Mitch Kinsey MD Primary Care Provider [phone] Allergies No known active allergies Medications lisinopriL (PRINIVIL) 20 mg tablet lisinopril 20 mg tablet TAKE 1 TABLET BY MOUTH EVERY DAY Active pantoprazole (PROTONIX) 40 mg Tablet, Delayed Release (E.C.) TAKE 1 TABLET BY MOUTH EVERY DAY IN THE MORNING. NEEDS APPT FOR FURTHER REFILLS 3 Active Active Problems Problem Noted Date Diagnosed Date Cancer of glottis 05/15/2021 Encounters Date Type Department Care Team Description 04/07/2024 External Device Data ST[facility] ABSTRACTION Provider, Abstract 04/01/2024 External Device Data [facility] ABSTRACTION Provider, Abstract from Last 3 Months Social History Tobacco Use Types Packs/Day Years Used Date Smoking Tobacco: Former Smokeless Tobacco: Never Tobacco Cessation:Counseling Given: Not Answered Alcohol Use Standard Drinks/Week Comments Yes 0 (1 standard drink = 0.6 oz pur e alcohol) Sex and Gender Information Value Date Recorded Sex Assigned at Not on file Legal Sex Male 2:37 PM CIGAR BANDER HAND Gender Identity Not on file Sexual Orientation Not on file Last Filed Vital Signs Vital Sign Reading Time Taken Comments Blood Pressure 134/81 10/22/2023 1:09 PM CDT Pulse 69 10/22/2023 1:09 PM CDT Temperature 36.8 C (98.2 F) 10/22/2023 1:09 PM CDT Respiratory Rate 16 10/22/2023 1:09 PM CDT Oxygen Saturation 96% 10/22/2023 1:09 PM CDT Inhaled Oxygen Concentration - - Weight 83.9 kg (185 lb) 10/22/2023 1:09 PM CDT Height 175.3 cm (5' 9 ) 09/23/2022 1:02 PM CDT Body Mass Index 27.32 09/23/2022 1:02 PM CDT Plan of Treatment Upcoming Encounters Date Type Department Care Team (Late st Contact Info) Description 04/26/2024 2:45 PM CIGAR BANDER HAND Office Visit [facility] Oncology and Hematology - [place] [address] [facility] [address] [place] [address] Erick Ayers MD [address] [facility] [address] [place] [address] Health Maintenance Due Date Last Done Comments DTAP/TDAP/TD VACCINES (1 - Tdap) 1970 COLORECTAL SCREENING 1996 Colorectal Cancer Screening 1996 FIT-DNA Q 3 years 1996 FIT/FOBT Q 1 year 1996 Flex Sig/CT Colonography Q 5 years 1996 PNEUMOCOCCAL VACCINE 65+ YEARS (1 of 1 - PCV) 03/25/19 02 ZOSTER VACCINE (1 of 2) 2001 Abdominal Aortic Aneurysm (AAA) Screening 2016 INFLUENZA VACCINE (#1) 2023 RSV VACCINE (60+ or ) (1 - 1-dose 75+ series) 2026 Insurance [employer] PPO [facility] A[employer] PPO MCR Care Teams Clinical Practice Consultant Relationship Specialty Start Date End Date Mitch Kinsey MD [address] [facility] [address] [place] [address] PCP - General Internal Medicine 04/19/21
--- OUTSIDE RECORDS SUMMARY | 2024-04-19 06:42 | XMS_ITS | CONTINUITY OF CARE DOCUMENT ---
Author Name yonatan tam Address Unknown Organization [facility] Address [address] [place] [address] Phone [phone] Care Team Providers Care Casting And Locker Room Servicer Name Role Phone Alfredo BRYAN, Torito Unavailable Mitch Kinsey MD Unavailable [phone] Mitch Kinsey MD Unavailable INSURANCE PROVIDERS Payer name Policy type / Coverage type [place] red green party ID [id number] [employer] insurance [employer] [id number] [facility] [id number] 1
--- OUTSIDE RECORDS SUMMARY | 2024-04-19 06:42 | XMS_ITS | Data Portability ---
Author Organization [place] [facility] [employer], Main Office Address [address] [place] [address] Care Team Providers Care Executive Marketing Assistant Name Role Phone ANTHONY KINSEY Primary Care Provider ANTHONY KINSEY Referring Provider ANTHONY KINSEY Primary Care Provider [phone] TRACY BEAL Orthopedic Surgeon Assessment Encounter Date Assessment Date Assessment LastModified by Organization Details LastModified Time 04/05/2024 04/05/2024 HPI: 74 year old male right hand dominant, who presents today for right wrist pain that has been ongoing for the past 3 weeks. This is a result of unclear etiology. Locates pain along radial aspect of wrist. Reports pain today as 5 Pain is nonradiating. Pain is aggravated by wrist flexion and thumb abduction. He has tried bracing with some relief. No associated symptoms. Denies pain with gripping, weakness, numbness and tingling. There is no history of prior injury. No recent injury. No history of surgery. 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 Significant Medical Hx: DM, HTN, Smoker, Elevated liver enzymes, kidney disease, throat cancer ROS: Per patient questionnaire Physical Exam: General: Normal appearance. No acute distress. Inspection: No evidence of swelling, erythema, bruising or deformity. Palpation: Nontender to palpation. ROM: Normal ROM. No pain with ROM. Special Test: Positive Yue. Motor: 5/5 strength. Normal instrumentation controls engineer strength. Sensation: Sensation intact. Imaging: Xray reviewed. Osteoarthritis of right wrist, with subchondral sclerosis and osteophyte formation. No evidence of acute bony injury Assessment & Plan: This patient presents with wrist pain suspicious for DeQuervian Tenosynovitis given history and exam. Provided him with a Thumb Spica Splint today. This will immobilize the thumb and wrist, which allows the inflamed tendons to rest and heal. Ordered OT/PT. He is unable to have NSAIDs due to kidney disease, also unable to have tylenol due to elevated liver enzymes. Follow Up: 6 weeks, after a course of physical therapy. If he has no improvement next step would to consider an injection. All questions were answered. Patient verbalized understanding of treatment plan [email or web address] Not available 04/05/2024 11:01:45 Plan of Treatment Reminders Order Date Submit Date Provider Last Modified By Organization Details Last Modified Time Details Appointments Any 5 2024 09:20A M Tracy Beal MD Not available Not available Not available Any 2024 08:30A Miguel Kinsey MD Not available Not available Not available Lab glycohemo globin, total, blood 2023 024 [facility] (Lab), [address] [place], [address], 07/09/2023 21:35:28 CMP, serum or plasma 2023 024 [facility] (Lab), [address] [place], [address], 07/09/2023 20:52:34 microalbu min, urine 2023 024 [facility] (Lab), [address] [place], [address], 07/09/2023 21:46:57 urinalysi s, dipstick [address] (Lab), [address] [place], [address], 07/15/2023 08:15:20 vitamin D, 25-hydrox y, total, serum [address] (Lab), [address] [place], [address], 07/15/2023 08:15:27 lipid panel, serum 2023 024 [facility] (Lab), [address] [place], [address], 07/09/2023 20:52:38 PSA, serum or plasma [address] (Lab), [address] [place], [address], 07/15/2023 08:15:11 uric acid, serum or plasma 2024 025 [facility] (Lab), [address] [place], [address], 03/29/2024 19:14:22 PSA, serum or plasma [address] (Lab), [address] [place], [address], 04/07/2024 09:13:37 glycohemo globin, total, blood 2024 025 [facility] (Lab), [address] [place], [address], 03/29/2024 19:27:16 CMP, serum or plasma 2024 025 [facility] (Lab), [address] [place], [address], 03/29/2024 19:14:16 Referral orthopedi c surgeon referral 2024 025 [email or web address] Tracy Beal MD, [address], [place], [address], 03/29/2024 12:20:03 occupatio nal therapist referral - Please schedule pt for R thumb/ R wrist. Thanks 2024 025 [facility], [address], [place], [address], 04/05/2024 17:50:37 Procedures None recorded. Surgeries None recorded. Imaging XR, wrist, 3 or more view 2024 025 shayan [facility], [address], [place], [address], 04/05/2024 10:34:31 Medication Orders pantopraz ole 40 mg tablet,de layed release 2022 023 [id number] [address] [facility], [place], [address], 07/08/2022 10:59:09 pantopraz ole 40 mg tablet,de layed release 2023 024 [address] [id number], [address], [place], [address], 07/08/2023 13:09:41 lisinopri l 20 mg tablet 2023 024 [address] [id number], [address], [place], [address], 07/08/2023 13:09:41 lisinopri l 20 mg tablet 2024 025 [id number], [address], [place], [address], 03/29/2024 09:24:13 Patient TargetsNo targets recorded. Patient InstructionsNo instructions recorded. Reason for Referral Orthopedic Surgeon Referral for Pain of right wrist Referring Physician: Anthony Kinsey, Internal Medicine, Encounter Date: 03/29/2024 Occupational Therapist Refer ral for Pain of right wrist R wrist/R thumb Please schedule pt for R thumb/ R wrist. Thanks Referring Physician: David Triplett, Orthopedic Surgery, Encounter Date: 04/05/2024 Results Created Date Observation Date Name Description Value Unit Range Abnormal Flag Note LastModifiedBy Organization Detail LastModifiedTime 07/09/19 24 07/09/2023 URINA LYSIS /IRIS W/O MICRO color COLORL ESS Not Available [facility] (Lab) [address] [place], [address], 07/09/2023 20:09:43 07/09/19 24 07/09/2023 URINA LYSIS /IRIS W/O MICRO appear CLEAR Not Available [facility] (Lab) [address] [place], [address], 07/09/2023 20:09:43 07/09/19 24 07/09/2023 URINA LYSIS /IRIS W/O MICRO specific gravity 1.007 1.001- 1.030 Not Available [facility] (Lab) [address] [place], [address], 07/09/2023 20:09:43 07/09/19 24 07/09/2023 URINA LYSIS /IRIS W/O MICRO pH 5.5 pH_un its 5.0-9. 0 Not Available [facility] (Lab) [address] [place], [address], 07/09/2023 20:09:43 07/09/19 24 07/09/2023 URINA LYSIS /IRIS W/O MICRO leukocytes NEGATI VE hansel/u L negati ve- Not Available [facility] (Lab) [address] [place], [address], 07/09/2023 20:09:43 07/09/19 24 07/09/2023 URINA LYSIS /IRIS W/O MICRO nitrite NEGATI VE negati ve- Not Available [facility] (Lab) [address] [place], [address], 07/09/2023 20:09:43 07/09/19 24 07/09/2023 URINA LYSIS /IRIS W/O MICRO protein NEGATI VE mg/dL negati ve- Not Available [facility] (Lab) [address] [place], [address], 07/09/2023 20:09:43 07/09/19 24 07/09/2023 URINA LYSIS /IRIS W/O MICRO glucose NORMAL mg/dL normal - Not Available [facility] (Lab) [address] [place], [address], 07/09/2023 20:09:43 07/09/19 24 07/09/2023 URINA LYSIS /IRIS W/O MICRO ketones NEGATI VE mg/dL negati ve- Not Available [facility] (Lab) [address] [place], [address], 07/09/2023 20:09:43 07/09/19 24 07/09/2023 URINA LYSIS /IRIS W/O MICRO urobilinogen NORMAL mg/dL normal - Not Available [facility] (Lab) [address] [place], [address], 07/09/2023 20:09:43 07/09/19 24 07/09/2023 URINA LYSIS /IRIS W/O MICRO bilirubin NEGATI VE mg/dL negati ve- Not Available [facility] (Lab) [address] [place], [address], 07/09/2023 20:09:43 07/09/19 24 07/09/2023 URINA LYSIS /IRIS W/O MICRO blood NEGATI VE mg/dL negati ve- Not Available [facility] (Lab) [address] [place], [address], 07/09/2023 20:09:43 07/09/19 24 07/09/2023 URINA LYSIS /IRIS W/O MICRO color COLORL ESS Not Available [facility] (Lab) [address] [place], [address], 07/09/2023 20:11:13 07/09/19 24 07/09/2023 URINA LYSIS /IRIS W/O MICRO appear CLEAR Not Available [facility] (Lab) [address] [place], [address], 07/09/2023 20:11:13 07/09/19 24 07/09/2023 URINA LYSIS /IRIS W/O MICRO specific gravity 1.007 1.001- 1.030 Not Available [facility] (Lab) [address] [place], [address], 07/09/2023 20:11:13 07/09/19 24 07/09/2023 URINA LYSIS /IRIS W/O MICRO pH 5.5 pH_un its 5.0-9. 0 Not Available [facility] (Lab) [address] [place], [address], 07/09/2023 20:11:13 07/09/19 24 07/09/2023 URINA LYSIS /IRIS W/O MICRO leukocytes NEGATI VE hansel/u L negati ve- Not Available [facility] (Lab) [address] [place], [address], 07/09/2023 20:11:13 07/09/19 24 07/09/2023 URINA LYSIS /IRIS W/O MICRO nitrite NEGATI VE negati ve- Not Available [facility] (Lab) [address] [place], [address], 07/09/2023 20:11:13 07/09/19 24 07/09/2023 URINA LYSIS /IRIS W/O MICRO protein NEGATI VE mg/dL negati ve- Not Available [facility] (Lab) [address] [place], [address], 07/09/2023 20:11:13 07/09/19 24 07/09/2023 URINA LYSIS /IRIS W/O MICRO glucose NORMAL mg/dL normal - Not Available [facility] (Lab) [address] [place], [address], 07/09/2023 20:11:13 07/09/19 24 07/09/2023 URINA LYSIS /IRIS W/O MICRO ketones NEGATI VE mg/dL negati ve- Not Available [facility] (Lab) [address] [place], [address], 07/09/2023 20:11:13 07/09/19 24 07/09/2023 URINA LYSIS /IRIS W/O MICRO urobilinogen NORMAL mg/dL normal - Not Available [facility] (Lab) [address] [place], [address], 07/09/2023 20:11:13 07/09/19 24 07/09/2023 URINA LYSIS /IRIS W/O MICRO bilirubin NEGATI VE mg/dL negati ve- Not Available [facility] (Lab) [address] [place], [address], 07/09/2023 20:11:13 07/09/19 24 07/09/2023 URINA LYSIS /IRIS W/O MICRO blood NEGATI VE mg/dL negati ve- Not Available [facility] (Lab) [address] [place], [address], 07/09/2023 20:11:13 07/09/19 24 07/09/2023 URINA LYSIS /IRIS W/O MICRO white blood cells 0-8 /i??h pfi?? 0-8 Not Available [facility] (Lab) [address] [place], [address], 07/09/2023 20:11:13 07/09/19 24 07/09/2023 URINA LYSIS /IRIS W/O MICRO red blood cells NONE /i??h pfi?? 0-4 Not Available [facility] (Lab) [address] [place], [address], 07/09/2023 20:11:13 07/09/19 24 07/09/2023 URINA LYSIS /IRIS W/O MICRO bacteria NONE Not Available [facility] (Lab) [address] [place], [address], 07/09/2023 20:11:13 07/09/19 24 07/09/2023 URINA LYSIS /IRIS W/O MICRO squamous epithelial OCCASI ONAL /i??l pfi?? abnormal Not Available [facility] (Lab) [address] [place], [address], 07/09/2023 20:11:13 07/09/19 24 07/09/2023 VITAM IN D 25-HY DROXY [id number] 20.1 NG/mL 30-100 low Vitam in D Statu s: Defic ient: <20 ng/mL Insuf ficie nt: 20-29 ng/mL Suffi cient : 30-10 0 ng/mL Not Available [facility] (Lab) [address] [place], [address], 07/09/2023 20:42:52 07/09/19 24 07/09/2023 PSA SCREE N PSA medicare screen 1.59 NG/mL 0.00-4 .00 Not Available [facility] (Lab) [address] [place], [address], 07/09/2023 20:47:09 07/09/19 24 07/09/2023 COMPR EHENS PINKY METAB OLIC PANEL sodium 138 mmol/ L 137-14 5 Not Available [facility] (Lab) [address] [place], [address], 07/09/2023 20:52:34 07/09/19 24 07/09/2023 COMPR EHENS PINKY METAB OLIC PANEL potassium 4.9 mmol/ L 3.5-5. 1 Not Available [facility] (Lab) [address] [place], [address], 07/09/2023 20:52:34 07/09/19 24 07/09/2023 COMPR EHENS PINKY METAB OLIC PANEL chloride 106 mmol/ L 98-107 Not Available [facility] (Lab) [address] [place], [address], 07/09/2023 20:52:34 07/09/19 24 07/09/2023 COMPR EHENS PINKY METAB OLIC PANEL carbon dioxide 27 mmol/ L 22-30 Not Available [facility] (Lab) [address] [place], [address], 07/09/2023 20:52:34 07/09/19 24 07/09/2023 COMPR EHENS PINKY METAB OLIC PANEL anion gap 9.9 mmol/ L 14-22 low Not Available [facility] (Lab) [address] [place], [address], 07/09/2023 20:52:34 07/09/19 24 07/09/2023 COMPR EHENS PINKY METAB OLIC PANEL glucose 103 mg/dL 70-99 high Not Available [facility] (Lab) [address] [place], [address], 07/09/2023 20:52:34 07/09/19 24 07/09/2023 COMPR EHENS PINKY METAB OLIC PANEL BUN 17 mg/dL 8-19 Not Available [facility] (Lab) [address] [place], [address], 07/09/2023 20:52:34 07/09/19 24 07/09/2023 COMPR EHENS PINKY METAB OLIC PANEL creatinine 1.27 mg/dL 0.66-1 .25 high Not Available [facility] (Lab) [address] [place], [address], 07/09/2023 20:52:34 07/09/19 24 07/09/2023 COMPR EHENS PINKY METAB OLIC PANEL GFR 56 Refer ence Range : Preston ge GFR Healt hy Adult : >60 mL/mi n/1.7 3 m2 Chron ic Kidne y Disea se: 15-60 mL/mi n/1.7 3 m2 Kidne y Failu re: <15/m L/min /1.73 m2 www.n iddk. nih.g ov The MDRD study equat ion has not been valid ated in child gloria <18 years of age; pregn ant women ; the elder ly >85 years of age; or in some racia l or ethni c subgr oups, such as Hispa nics. Outsi de the valid ated jimmie eters , estim ated GFR is less accur ate, requi ring clini alonzo judgm ent on a case- by-ca se basis . Clini alonzo inter preta tion for other races and ages must be made by the clini gary. The MDRD study equat ion has not been valid ated for the evalu ation of serum creat inine relat ed to nutri keven l statu s or medic ation usage . For perso ns <18 years of age, a pedia tric GFR calcu lator is avail able on the [facility] websi te: https ://himanshu carlson.jasvir fuller.o sharmila/pr americoess andriyal s/nadyao qi/gf r_cal culat or Not Available [facility] (Lab) [address] [place], [address], 07/09/2023 20:52:34 07/09/19 24 07/09/2023 COMPR EHENS PINKY METAB OLIC PANEL alkaline phosphatase 59 U/L 38-126 Not Available [facility] (Lab) [address] [place], [address], 07/09/2023 20:52:34 07/09/19 24 07/09/2023 COMPR EHENS PINKY METAB OLIC PANEL alanine aminotransfe rase 16 U/L 0-50 Not Available [facility] (Lab) [address] [place], [address], 07/09/2023 20:52:34 07/09/19 24 07/09/2023 COMPR EHENS PINKY METAB OLIC PANEL aspartate aminotransfe rase 26 U/L 15-46 Not Available [facility] (Lab) [address] [place], [address], 07/09/2023 20:52:34 07/09/19 24 07/09/2023 COMPR EHENS PINKY METAB OLIC PANEL bilirubin, total 0.40 mg/dL 0.20-1 .30 Not Available [facility] (Lab) [address] [place], [address], 07/09/2023 20:52:34 07/09/19 24 07/09/2023 COMPR EHENS PINKY METAB OLIC PANEL calcium 9.0 mg/dL 8.4-10 .2 Not Available [facility] (Lab) [address] [place], [address], 07/09/2023 20:52:34 07/09/19 24 07/09/2023 COMPR EHENS PINKY METAB OLIC PANEL total protein 6.6 g/dL 6.3-8. 2 Not Available [facility] (Lab) [address] [place], [address], 07/09/2023 20:52:34 07/09/19 24 07/09/2023 COMPR EHENS PINKY METAB OLIC PANEL albumin 4.2 g/dL 3.0-4. 4 Not Available [facility] (Lab) [address] [place], [address], 07/09/2023 20:52:34 07/09/19 24 07/09/2023 COMPR EHENS PINKY METAB OLIC PANEL globulin 2.4 g/dL 2.6-4. 2 low Not Available [facility] (Lab) [address] [place], [address], 07/09/2023 20:52:34 07/09/19 24 07/09/2023 COMPR EHENS PIKNY METAB OLIC PANEL A/G ratio 1.8 ratio 1.0-2. 0 Not Available [facility] (Lab) [address] [place], [address], 07/09/2023 20:52:34 07/09/19 24 07/09/2023 LIPID PANEL cholesterol 226 mg/dL 140-19 9 high NIH NILO NSUS RECOM MENDA TION FOR NANCY STERO L: ADULT CHILD LOW RISK: <200 <170 BORDE RLINE : <200- 239 ----- HIGH RISK: >240 >200 Not Available [facility] (Lab) [address] [place], [address], 07/09/2023 20:52:38 07/09/19 24 07/09/2023 LIPID PANEL triglyceride s 86 mg/dL 0-150 NIH NILO NSUS REPOR T RECOM MENDA TION FOR TRIGL YCERI HÉCTOR: ADULT CHILD LOW RISK: <150 ----- BODER LINE: 150-1 99 ----- HIGH RISK: >200 ----- Not Available [facility] (Lab) [address] [place], [address], 07/09/2023 20:52:38 07/09/19 24 07/09/2023 LIPID PANEL HDL cholesterol 67 mg/dL 40- Not Available [facility] (Lab) [address] [place], [address], 07/09/2023 20:52:38 07/09/19 24 07/09/2023 LIPID PANEL LDL cholesterol, calculated 142 mg/dL 0-130 high NIH NILO NSUS REPOR T RECOM MENDA TIONS FOR LDL: ADULT CHILD LOW RISK <130 <110 (OPTI MAL LDL) <100 ----- BORDE RLINE : 130-1 59 ----- HIGH RISK: >160 >130 A TRIGL YCERI DE RESUL T >400 INVAL IDATE S THE CALCU LATIO N FOR LDL FRACT IONAT ION - THE LDL RESUL T WILL NOT BE REPOR CARLY. Not Available [facility] (Lab) [address] [place], [address], 07/09/2023 20:52:38 07/09/19 24 07/09/2023 HEMOG LOBIN A1C HA1C 6.4 % 4.0-6. 0 high Diabe ricardo Xavier madera Crite oanh: <5.7% Consi stent with absen ce of diabe ricardo 5.7-6 .4% Consi stent with incre ased risk for diabe ricardo (pred iabet es) >OR=6 .5% Consi stent with diabe ricardo REFER ENCE: Diabe ricardo Care 2016, 39( ppl.1 ):s13 -s22 Not Available [facility] (Lab) [address] [place], [address], 07/09/2023 21:35:28 07/09/19 24 07/09/2023 MICRO ALBUM IN RANDO M URINE microalbumin , urine <6.0 mg/L 0.0-16 .6 Not Available [facility] (Lab) [address] [place], [address], 07/09/2023 21:46:57 03/29/19 25 03/29/2024 COMPR EHENS PINKY METAB OLIC PANEL sodium 135 mmol/ L 137-14 5 low Not Available [facility] (Lab) [address] [place], [address], 03/29/2024 19:14:16 03/29/19 25 03/29/2024 COMPR EHENS PINKY METAB OLIC PANEL potassium 4.6 mmol/ L 3.5-5. 1 Not Available [facility] (Lab) [address] [place], [address], 03/29/2024 19:14:16 03/29/19 25 03/29/2024 COMPR EHENS PINKY METAB OLIC PANEL chloride 102 mmol/ L 98-107 Not Available [facility] (Lab) [address] [place], [address], 03/29/2024 19:14:16 03/29/19 25 03/29/2024 COMPR EHENS PINKY METAB OLIC PANEL carbon dioxide 28 mmol/ L 22-30 Not Available [facility] (Lab) [address] [place], [address], 03/29/2024 19:14:16 03/29/19 25 03/29/2024 COMPR EHENS PINKY METAB OLIC PANEL anion gap 9.6 mmol/ L 14-22 low Not Available [facility] (Lab) [address] [place], [address], 03/29/2024 19:14:16 03/29/19 25 03/29/2024 COMPR EHENS PINKY METAB OLIC PANEL glucose 102 mg/dL 70-99 high Not Available [facility] (Lab) [address] [place], [address], 03/29/2024 19:14:16 03/29/19 25 03/29/2024 COMPR EHENS PINKY METAB OLIC PANEL BUN 17 mg/dL 8-19 Not Available [facility] (Lab) [address] [place], [address], 03/29/2024 19:14:16 03/29/19 25 03/29/2024 COMPR EHENS PINKY METAB OLIC PANEL creatinine 1.40 mg/dL 0.66-1 .25 high Not Available [facility] (Lab) [address] [place], [address], 03/29/2024 19:14:16 03/29/19 25 03/29/2024 COMPR EHENS PINKY METAB OLIC PANEL GFR 50 Refer ence Range : Preston ge GFR Healt hy Adult : >60 mL/mi n/1.7 3 m2 Chron ic Kidne y Disea se: 15-60 mL/mi n/1.7 3 m2 Kidne y Failu re: <15/m L/min /1.73 m2 www.n iddk. nih.g ov The MDRD study equat ion has not been valid ated in child gloria <18 years of age; pregn ant women ; the elder ly >85 years of age; or in some racia l or ethni c subgr oups, such as Hispa nics. Outsi de the valid ated jimmie eters , estim ated GFR is less accur ate, requi ring clini alonzo judgm ent on a case- by-ca se basis . Clini alonzo inter preta tion for other races and ages must be made by the clini gary. The MDRD study equat ion has not been valid ated for the evalu ation of serum creat inine relat ed to nutri keven l statu s or medic ation usage . For perso ns <18 years of age, a pedia tric GFR calcu lator is avail able on the [facility] websi te: https ://himanshu fuller.o rg/pr ofess ional s/kdo qi/gf r_cal culat or Not Available [facility] (Lab) [address] [place], [address], 03/29/2024 19:14:16 03/29/19 25 03/29/2024 COMPR EHENS PINKY METAB OLIC PANEL alkaline phosphatase 62 U/L 38-126 Not Available [facility] (Lab) [address] [place], [address], 03/29/2024 19:14:16 03/29/19 25 03/29/2024 COMPR EHENS PINKY METAB OLIC PANEL alanine aminotransfe rase 15 U/L 0-50 Not Available [facility] (Lab) [address] [place], [address], 03/29/2024 19:14:16 03/29/19 25 03/29/2024 COMPR EHENS PINKY METAB OLIC PANEL aspartate aminotransfe rase 25 U/L 15-46 Not Available [facility] (Lab) [address] [place], [address], 03/29/2024 19:14:16 03/29/19 25 03/29/2024 COMPR EHENS PINKY METAB OLIC PANEL bilirubin, total 0.60 mg/dL 0.20-1 .30 Not Available [facility] (Lab) [address] [place], [address], 03/29/2024 19:14:16 03/29/19 25 03/29/2024 COMPR EHENS PINKY METAB OLIC PANEL calcium 9.1 mg/dL 8.4-10 .2 Not Available [facility] (Lab) [address] [place], [address], 03/29/2024 19:14:16 03/29/19 25 03/29/2024 COMPR EHENS PINKY METAB OLIC PANEL total protein 6.9 g/dL 6.3-8. 2 Not Available [facility] (Lab) [address] [place], [address], 03/29/2024 19:14:16 03/29/19 25 03/29/2024 COMPR EHENS PINKY METAB OLIC PANEL albumin 4.4 g/dL 3.0-4. 4 Not Available [facility] (Lab) [address] [place], [address], 03/29/2024 19:14:16 03/29/19 25 03/29/2024 COMPR EHENS PINKY METAB OLIC PANEL globulin 2.5 g/dL 2.6-4. 2 low Not Available [facility] (Lab) [address] [place], [address], 03/29/2024 19:14:16 03/29/19 25 03/29/2024 COMPR EHENS PINKY METAB OLIC PANEL A/G ratio 1.8 ratio 1.0-2. 0 Not Available [facility] (Lab) [address] [place], [address], 03/29/2024 19:14:16 03/29/19 25 03/29/2024 URIC ACID SERUM uric acid 7.7 mg/dL 3.5-8. 5 Not Available [facility] (Lab) [address] [place], [address], 03/29/2024 19:15:27 03/29/19 25 03/29/2024 HEMOG LOBIN A1C HA1C 6.5 % 4.0-6. 0 high Diabe ricardo Scree santy Crite oanh: <5.7% Consi stent with absen ce of diabe ricardo 5.7-6 .4% Consi stent with incre ased risk for diabe ricardo (pred iabet es) >OR=6 .5% Consi stent with diabe ricardo REFER ENCE: Diabe ricardo Care 2016, 39(Castillo ppl.1 ):s13 -s22 Not Available [facility] (Lab) [address] [place], [address], 03/29/2024 19:27:16 03/29/19 25 03/29/2024 PSA SCREE N PSA medicare screen 1.75 NG/mL 0.00-4 .00 Not Available [facility] (Lab) [address] [place], [address], 03/29/2024 20:37:53 03/26/[address], neck, soft tissu e, w/o contr ast No observ ation record ed. [id number], [address], 05/08/2022 06:08:44 09/17/19 23 09/16/2022 CT, neck, soft tissu e, w/o contr ast No observ ation record ed. [email or web address] [address], [address], 07/08/2023 11:11:08 01/24/20 23 01/23/2023 CT, neck, soft tissu e, w/ contr ast No observ ation record ed. [email or web address] Not Available 2023 11:11:08 08/07/20 24 10/15/2023 CT, neck, soft tissu e, w/o contr ast No observ ation record ed. [email or web address] Not Available 2024 09:17:13 04/05/19 25 XR, wrist , 3 or more view No observ ation record ed. [facility] [place] [address], [place], [address], 04/05/2024 10:34:30 Result Notes None recorded. Problems Name Problem SNOMED Code Status Onset Date Resolution Date Notes Provider Name and Address Organization Details Recorded Time Otalgia 71847740 Completed Not Available [facility] 3 06:02:23 Liver enzymes outside reference range 970446827 Completed Not Available [facility] 3 06:02:24 Blood glucose outside reference range 778544101 Active Not Available [facility] 3 06:02:24 Gastroeso phageal reflux disease 621868814 Active 2021 Not Available [facility] 3 06:02:24 Benign prostatic hyperplas ia 898074724 Active Not Available [facility] 3 06:02:24 Knee pain Completed Not Available [facility] 3 06:02:24 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 Not Available [facility] 3 06:02:24 Upper respirato ry infection 93417690 Completed Not Available [facility] 3 06:02:24 Hyperlipi demia 35705471 Active Not Available [facility] 3 06:02:24 Essential hypertens ion 52685103 Active Not Available [facility] 3 06:02:24 Diabetes mellitus 62556436 Active Not Available [facility] 3 06:02:24 Abnormal liver function 22516891 Active Not Available [facility] 3 06:02:24 Smoker 04725442 Active 2020 Not Available [facility] 3 06:02:24 Gout 38947086 Active Not Available [facility] 3 06:02:25 Kidney disease 41380861 Active 2021 Not Available [facility] 3 06:02:25 Vitamin D deficienc y 78759001 Active 2023 Mary Ann Mccarthy LPN null, [place] - [facility] 4 09:38:41 Pain of right wrist 04951629371 9100 Active 2024 Anthony Kinsey MD [address] [place] [address] [address], [place], [address] , [facility] [employer] [facility] 5 09:23:35 Problem Notes Documentation Provider Name and Address Organization Details Recorded Time Orthopedic Surgeon Consult Note : [facility] [address] [place] [id number] ROBLES (id #[id number], : 1950) Documents sent via fax will include the following message: This fax may contain sensitive and confidential personal health information that is being sent for the sole use of the intended recipient. Unintended recipients are directed to securely destroy any materials received. You are hereby notified that the unauthorized disclosure or other unlawful use of this fax or any personal health information is prohibited. To the extent patient information contained in this fax is subject to 42 CFR Part 2, this regulation prohibits unauthorized disclosure of these records. If you received this fax in error, please visit [email or web address] to notify the sender and confirm that the information will be destroyed. If you do not have internet access, please call to notify the sender and confirm that the information will be destroyed. Thank you for your attention and cooperation. [ID:[id number]] , Date: 04/05/2024RE: Dion Arias MD, I would like to thank you for referring Lazaro Robles to me for consultation and evaluation of Right wrist pain/injury , on 04/05/2024. I have enclosed a copy of the office assessment and plan for your records. Once again, thank you for allowing me to participate in the care of this patient. Sincerely, Electronically Signed by: DAVID TRIPLETT PA-C, COURTNEY Assessment/PlanHPI:74 year old maleright hand dominant, who presents today for right wrist pain that has been ongoing for the past 3 weeks. This is a result of unclear etiology. Locates pain along radial aspect of wrist. Reports pain today as 5 Pain is nonradiating. Pain is aggravated by wrist flexion and thumb abduction. He has tried bracing with some relief. No associated symptoms. Denies pain with gripping, weakness, numbness and tingling. There is no history of prior injury. No recent injury. No history of surgery. 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 Significant Medical Hx:DM, HTN, Smoker, Elevated liver enzymes, kidney disease, throat cancer ROS:Per patient questionnaire Physical Exam:General:Normal appearance. No acute distress.Inspection:No evidence of swelling, erythema, bruising or deformity.Palpation:Nonte nder to palpation.ROM:Normal ROM. No pain with ROM.Special Test:Positive Yue.Motor:5/5 strength. Normal instrumentation controls engineer strength.Sensation:Sensat ion intact. Imaging:Xray reviewed. Osteoarthritis of right wrist, with subchondral sclerosis and osteophyte formation. No evidence of acute bony injury Assessment & Plan:This patient presents with wrist pain suspicious for DeQuervian Tenosynovitis given history and exam. Provided him with a Thumb Spica Splint today. This will immobilize the thumb and wrist, which allows the inflamed tendons to rest and heal. Ordered OT/PT. He is unable to have NSAIDs due to kidney disease, also unable to have tylenol due to elevated liver enzymes. Follow Up:6 weeks, after a course of physical therapy. If he has no improvement next step would to consider an injection. All questions were answered. Patient verbalized understanding of treatment plan 1. Pain of right vahdnG02.531: Pain in right wrist XR, WRIST, 3 OR MORE VIEW Side: RIGHT OCCUPATIONAL THERAPIST REFERRAL - Schedule Within: provider's discretion Note to Provider: Please schedule pt for R thumb/ R wrist. Thanks Frequency: 12 total visits Side: RIGHT Reason for Referral: R wrist/R thumb # of requested visits: 12 XR, WRIST, 3 OR MORE VIEW Side: RIGHT Return to Office Tracy Beal MD for Any 5 at [facility] on 05/24/2024 at 09:20 AM Anthony Kinsey MD for Any 15 at [facility] Internal Med [facility] on 07/29/2024 at 08:30 AM Anthony Kinsey MD [address], [address], [place], [address], [facility] 04/05/2024 13:06:20 Procedures Surgical History None recorded. Imaging Results Imaging Date Name Status LastModified by Organiz ation Details LastModified Time 2022 CT, neck, soft tissue, w/o contrast completed [id number], [place], [address], 05/08/2022 06:08:44 09/16/2022 CT, neck, soft tissue, w/o contrast [email or web address] [address], [place], [address], 07/08/2023 11:11:08 01/23/2023 CT, neck, soft tissue, w/ contrast [email or web address] Information not available 07/08/2023 11:11:08 10/15/2023 CT, neck, soft tissue, w/o contrast completed [email or web address] Information not available 03/29/2024 09:17:13 04/05/2024 XR, wrist, 3 or more view completed [facility] [address] [facility], [place], [address], 04/05/2024 10:34:30 Procedure Notes None recorded. Medical Equipment None Reported. Allergies Allergen ID Allergen Name Allergen Category Reaction Reaction Severity Criticality Documentation Date Start Date Code Code System Note Provider Name and Address Organization Details Recorded Time 38481 atorvasta tin medicatio n myalgias (muscle pain) Not available Not available 07/08/2022 46503 RxNorm Anthony Kinsey MD [address], [address], [place], [address], [employer] [facility] 10:56:51 Medications Name Sig Start Date Stop Date Status Note LastModified by Organization Details LastModified Time amoxicillin 500 mg capsule Take 1 capsule 3 times a day by oral route. active Not Available Not Available No t Available neomycin-po lymyxin-hyd rocort 3.5 mg/mL-10,00 0 unit/mL-1 % ear solution INSTILL 4 DROPS INTO AFFECTED EAR(S) BY OTIC ROUTE 3 TIMES PER DAY active Not Available Not Available No t Available doxycycline hyclate 100 mg capsule TAKE ONE CAPSULE BY MOUTH TWICE DAILY FOR 10 DAYS 04/05 completed Not Available Not Available Not Available atorvastati n 10 mg tablet TAKE 1 TABLET BY MOUTH EVERY DAY active Not Available Not Available No t Available Lidocaine Viscous 2 % mucosal solution MIX 5 ML LIDOCAINE WITH 5 ML MAALOX. SWALLOW ENTIRE 10 ML EVERY 6 HOURS NEEDED FOR PAIN 12/13 completed Not Available Not Available Not Available ofloxacin 0.3 % eye drops PLACE 1 DROP INTO SURGICAL EYE 3X A DAY STARTING 2 DAYS BEFORE SURGERY AND CONTINUIN G X1WEEK AFTER 04/05 completed Not Available Not Available Not Available benzonatate 200 mg capsule TAKE 1 CAPSULE BY MOUTH 3 TIMES A DAY NEEDED FOR COUGH 04/05 completed Not Available Not Available Not Available sucralfate 100 mg/mL oral suspension TAKE 10 ML BY MOUTH EVERY 6 HOURS 12/13 completed Not Available Not Available Not Available ondansetron HCl 8 mg tablet TAKE 1 TABLET BY MOUTH EVERY 8 HOURS NEEDED FOR NAUSEA/EM ESIS. 12/13 completed Not Available Not Available Not Available lisinopril 20 mg tablet TAKE 1 TABLET BY MOUTH EVERY DAY. 2024 active Not Available Not Available Not Avai lable prednisone 20 mg tablet PLEASE SEE ATTACHED FOR DETAILED DIRECTION S 04/05 completed Not Available Not Available Not Available Zithromax Z-Todd 250 mg tablet TAKE 2 TABLETS (500 MG) BY ORAL ROUTE ONCE DAILY FOR 1 DAY THEN 1 TABLET (250 MG) BY ORAL ROUTE ONCE DAILY FOR 4 DAYS active Not Available Not Available No t Available omeprazole 40 mg capsule,del ayed release TAKE 1 CAPSULE BY MOUTH ONCE EVERY DAY BEFORE DINNER 04/05 completed Not Available Not Available Not Available lidocaine-p rilocaine 2.5 %-2.5 % topical cream APPLY TO PORT SITE 30 MINUTES PRIOR TO ACCESS 12/13 completed Not Available Not Available Not Available ketorolac 0.5 % eye drops PLACE 1 DROP INTO SURGICAL EYE 3X A DAY STARTING 2 DAYS BEFORE SURGERY AND CONTINUE B2UVROD AFTER 04/05 completed Not Available Not Available Not Available amoxicillin 875 mg tablet active Not Available Not Available Not Available prednisolon e acetate 1 % eye drops,suspe nsion PLACE 1 DROP INTO SURGICAL EYE 3 TIMES A DAY STARTING AFTER SURGERY AND CONTINUE FOR 3 WEEKS 04/05 completed Not Available Not Available Not Available pantoprazol e 40 mg tablet,magdalena yed release TAKE 1 TABLET EVERY DAY BY ORAL ROUTE IN THE MORNING. active Not Available Not Available No t Available indomethaci n 25 mg capsule Take 1 capsule 3 times a day by oral route. active Not Available Not Available No t Available allopurinol 300 mg tablet TAKE 1 TABLET BY MOUTH EVERY DAY active Not Available Not Available No t Available ergocalcife rol (vitamin D2) 1,250 mcg (50,000 unit) capsule TAKE 1 CAPSULE BY MOUTH ONE TIME PER WEEK FOR 90 DAYS active Not Available Not Available No t Available lisinopril 10 mg-hydrochl orothiazide 12.5 mg tablet TAKE ONE TABLET BY MOUTH EVERY DAY 04/01 completed Not Available Not Available Not Available methylpredn isolone 4 mg tablets in a dose pack TAKE 6 TABLETS ON DAY 1 DIRECTED ON PACKAGE AND DECREASE BY 1 TAB EACH DAY FOR A TOTAL OF 6 DAYS 12/13 completed Not Available Not Available Not Available ipratropium bromide 42 mcg (0.06 %) nasal spray INSTILL 2 SPRAYS INTO THE NOSTRILS 4 TIMES DAILY NEEDED FOR RUNNY NOSE active Not Available Not Available No t Available amoxicillin 875 mg-potassiu m clavulanate 125 mg tablet TAKE 1 TABLET BY MOUTH TWICE A DAY X10 DAYS 04/05 completed Not Available Not Available Not Available ezetimibe 10 mg tablet Take 1 tablet every day by oral route. active Not Available Not Available No t Available hydrocodone 7.5 mg-acetamin ophen 325 mg/15 mL oral solution TAKE 10 ML BY MOUTH EVERY 6 HOURS NEEDED FOR PAIN *MAX DAILY AMOUNT 40 ML* 12/13 completed Not Available Not Available Not Available omeprazole 20 mg tablet,magdalena yed release ONE TAB BY MOUTH TWICE DAILY BEFORE MEALS 12/13 completed Not Available Not Available Not Available aspirin 81 mg effervescen t tablet Take 1 tablet every day by oral route. 07/07 completed Not Available Not Available Not Available dexlansopra zole 60 mg capsule,bip hase delayed release TAKE 1 CAPSULE BY MOUTH EVERY DAY 07/08 completed Not Available Not Available Not Available GaviLyte-G 236 gram-22.74 gram-6.74 gram-5.86 gram oral solution 03/19 completed Not Available Not Available Not Available Vitals Date Recorded Body mass index (BMI) Body height Oxygen saturation Oxygen saturation in Arterial blood by Pulse oximetry Heart rate Body temperature Body weight Systolic blood pressure Diastolic blood pressure Provider Name and Address Organization Details Last Updated DateTime 3 25.5 kg/m2 177.8 cm 95 % 95 % 62 /min 97.4 [degF] 19837.4 4 g 128 mm[Hg] 72 mm[Hg] Not Available [facility] 3 05:57:03 Date Recorded Body height Body mass index (BMI) Body weight Body temperature Heart rate Oxygen saturation Oxygen saturation in Arterial blood by Pulse oximetry Systolic blood pressure Diastolic blood pressure Provider Name and Address Organization Details Last Updated DateTime 3 177.8 cm 25.5 kg/m2 40709.4 4 g 97.2 [degF] 54 /min 96 % 96 % 118 mm[Hg] 72 mm[Hg] Coni Castañeda CMA [facility] 3 10:47:30 Date Recorded Body height Body mass index (BMI) Body weight Body temperature Heart rate Oxygen saturation Oxygen saturation in Arterial blood by Pulse oximetry Systolic blood pressure Diastolic blood pressure Provider Name and Address Organization Details Last Updated DateTime 4 177.8 cm 27 kg/m2 02000.0 1 g 97.7 [degF] 53 /min 98 % 98 % 120 mm[Hg] 80 mm[Hg] JANEEN Evans [facility] 4 10:39:44 Date Recorded Body height Body mass index (BMI) Body weight Body temperature Heart rate Oxygen saturation Oxygen saturation in Arterial blood by Pulse oximetry Systolic blood pressure Diastolic blood pressure Provider Name and Address Organization Details Last Updated DateTime 5 177.8 cm 27.5 kg/m2 25599.7 4 g 97.4 [degF] 62 /min 93 % 93 % 152 mm[Hg] 80 mm[Hg] Katarzyna suh, [facility] Clari [facility] [employer] [facility] 09:01:42 Date Recorded Body height Body mass index (BMI) Body weight Pain severity - 0-10 verbal numeric rating [Score] - Reported Provider Name and Address Organization Details Last Updated DateTime 04/05/2024 177.8 cm 27.3 kg/m2 64276.55 g 5 Jessica Duffy, [facility] [employer] 04/05/2024 09:46:41 Social History Question Answer Notes LastModified by Organization Details LastModified Time Tobacco Smoking Status Current Every Day Smoker Not Available [facility] 05/08/2022 05:53:42 Do You Have An Advance Directive? No MIGRATION.0301 [id number] Information not available 05/08/2022 What Is Your Level Of Alcohol Consumption? Moderate Drinks More Than 14 Beverages /week. 3 Days A Week Has Several Drinks MIGRATION.0301 925456 Information not available 05/08/2022 Are You Blind Or Do You Have Difficulty Seeing? No MIGRATION.0301 941195 Information not available 05/08/2022 What Is Your Level Of Caffeine Consumption? Moderate MIGRATION.0301 884583 Information not available 05/08/2022 In The 14 Days Before Symptom Onset, Have You Had Close Contact With A Laboratory-confi rmed COVID-19 While That Case Was Ill? No MIGRATION.0301 297518 Information not available 05/08/2022 In The 14 Days Before Symptom Onset, Have You Had Close Contact With A Person Who Is Under Investigation For COVID-19 While That Person Was Ill? No MIGRATION.0301 495531 Information not available 05/08/2022 Are You Deaf Or Do You Have Serious Difficulty Hearing? No MIGRATION.0301 321067 Information not available 05/08/2022 What Type Of Diet Are You Following? REGULAR MIGRATION.0301 957556 Information not available 05/08/2022 What Is The Highest Grade Or Level Of School You Have Completed Or The Highest Degree You Have Received? 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 No MIGRATION.0301 008398 Information not available 05/08/2022 What Is The Fluoride Status Of Your Home? Unknown MIGRATION.0301 597629 Information not available 05/08/2022 Are There Any Guns Present In Your Home? Yes MIGRATION.0301 645923 Information not available 05/08/2022 Where Do You Live? SingleLevelHouse MIGRATION.0301 520190 Information not available 05/08/2022 Do You Have A Medical Power Of Gastroenterology Nurse Practitioner? No MIGRATION.0301 089045 Information not available 05/08/2022 What Was The Date Of Your Most Recent Tobacco Screening? 04/05/2024 [email or web address] Information not available 04/05/2024 What Is Your Current Pack Years? 20-29packyears MIGRATION.0301 002768 Information not available 05/08/2022 Do You Have Any Pets? No MIGRATION.0301 473059 Information not available 05/08/2022 What Is Your Relationship Status? MIGRATION.0301 261208 Information not available 05/08/2022 Do You Use Your Seat Belt Or Car Seat Routinely? Yes MIGRATION.0301 756205 Information not available 05/08/2022 Do You Have Smoke And Carbon Monoxide Detectors In Your Home? Yes MIGRATION.0301 377604 Information not available 05/08/2022 Are You Passively Exposed To Smoke? No MIGRATION.0301 819306 Information not available 05/08/2022 Are There Any Smokers In Your House? No MIGRATION.0301 019208 Information not available 05/08/2022 How Much Tobacco Do You Smoke? 0.5 PPD MIGRATION.0301 525306 Information not available 05/08/2022 Do You Feel Stressed (tense, Restless, Nervous, Or Anxious, Or Unable To Sleep At Night)? QS2287-3 MIGRATION.0301 436904 Information not available 05/08/2022 Do You Use Any Illicit Or Recreational Drugs? No MIGRATION.0301 699010 Information not available 05/08/2022 Do You Use Sunscreen Routinely? Yes MIGRATION.0301 723526 Information not available 05/08/2022 Has Tobacco Cessation Counseling Been Provided? Yes MIGRATION.0301 822492 Information not available 05/08/2022 On What Date Was Tobacco Cessation Counseling Provided? 12/13/2021 MIGRATION.0301 229104 Information not available 05/08/2022 How Many Years Have You Smoked Tobacco? 45 Off And On MIGRATION.0301 132627 Information not available 05/08/2022 Have You Recently Traveled Abroad? No MIGRATION.0301 396702 Information not available 05/08/2022 Do You Have Any Dietary Restrictions? No MIGRATION.0301 201442 Information not available 05/08/2022 Do You Or Have You Ever Used Any Other Forms Of Tobacco Or Nicotine? No MIGRATION.0301 934685 Information not available 05/08/2022 Sex: Unknown Functional Status Question Answer Note LastModified by Organizat [employer] Details LastModified Time Do you have difficulty walking or climbing stairs? No MIGRATION.4311987 026 Information not available 05/08/2022 Do you have transportation difficulties? No MIGRATION.3870948 026 Information not available 05/08/2022 Are you able to walk? YESWOREST MIGRATION.2866683 026 Information not available 05/08/2022 Do you have difficulty doing errands alone? No MIGRATION.4014585 026 Information not available 05/08/2022 Are you able to care for yourself? Yes MIGRATION.0333075 026 Information not available 05/08/2022 Do you have difficulty dressing or bathing? No MIGRATION.5427363 026 Information not available 05/08/2022 What is your exercise level? Moderate MIGRATION.9058535 026 Information not available 05/08/2022 Mental Status Question Answer Note LastModified by Organizat ion Details LastModified Time Do you have difficulty concentrating, remembering or making decisions? No MIGRATION.[id number] 6 Information not available 05/08/2022 Family History Relationship Description Onset Age of this Age Resolved Age Notes LastModified by Organization Details LastModified Time Mother Heart disease [email or web address] Not available 2024 09:47:21 Mother Diabetes mellitus [email or web address] Not available 2024 09:47:55 Father Family history of malignant neoplasm Not available 2024 09:47:36 Medical History Condition Response GOUT Y CANCER: SPECIFY Y Immunizations Vaccine Type Date Status Note Provider Nam e and Address Organization Details Recorded Time Pneumococcal conjugate PCV 13 8 completed Not Available [facility] 07/08/2022 10:40:12 Td (adult) 4 completed Not Available [facility] 05/08/2022 06:08:00 pneumococcal polysaccharide PPV23 9 completed Not Available [facility] 07/08/2022 10:40:12 Pneumococcal conjugate PCV 13 8 completed Not Available [facility] 07/08/2022 10:40:12 Past Encounters Encounter ID Performer Location Encounter Start Date Encounter Closed Date Diagnosis/Indication Diagnosis SNOMED-CT Code Diagnosis ICD10 Code Diagnosis Note [id number] [facility] [address] [place] [address] 10/18/2020 00:00:00 10/18/2020 11:58:39 [id number] [facility] [address] [place] [address] 12/13/2021 00:00:00 12/13/2021 13:22:40 [id number] [facility] [address] 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 Kidney disease 06702920 N08 GFR 54, drinking water Pre-surger y evaluation 390038443 Z01.818 low risk [id number] Anthony Kinsey MD [facility] [address] [place] [address] 07/08/2023 09:59:18 07/08/2023 11:24:21 Diabetes mellitus 82582983 E11.9 under control Essential hypertension 67779348 I10 under control Gout 50545404 M10.9 no flare ups Smoker 89951356 F17.200 advised to quit, does not want LDCT Gastroesop hageal reflux disease 805629000 K21.9 un Hyperlipidemia 68119141 E78.5 stable labs 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 Kidney disease 00637362 N08 drinking water, check labs Screening for malignant neoplasm of prostate 174452879 Z12.5 Long-term drug therapy 622785302 Z79.388 [id number] Anthony Kinsey MD [facility] Internal [address] [address] 03/29/2024 08:52:30 03/29/2024 09:28:44 Diabetes mellitus 32242029 E11.9 under control , keep watching diet Essential hypertension 87235928 I10 was under control , he thinks it could be due to pain in the wrist, will recheck bp in 2-3 weeks and decide about meds Gout 66128970 M10.9 no flare ups Smoker 75972736 F17.200 advised to quit, does not want LDCT Gastroesop hageal reflux disease 440719198 K21.9 under control Hyperlipidemia 25777685 E78.5 stable labs Malignant tumor of pharynx 429520639 C14.0 in remission Kidney disease 93139642 N08 stable Long-term drug therapy 137718012 Z79.899 Adult [facility] th examination 156869697 Z00.00 Colonoscop y- 04/03/2017 PSA- 07/09/2023 TD- 11/17/2003 Pneumovax- 03/19/2018 Prevnar 13- 03/19/2017 FLU- Does not wantCOVID- Does not want Screening for malignant neoplasm of prostate 100156204 Z12.5 Pain of right wrist 3169 027837 30843 M25.828 [id number] David Triplett PA-C [facility] [address] [address] 04/05/2024 09:11:44 04/05/2024 10:23:57 Pain of right wrist 0566990641 12969 M25.531 Health Concerns Section Related Observation LastModified by Organization Detai ls LastModified Time None Recorded Concern Status LastModified by Organization Details LastModified Time None Recorded Advance Directives Directive N: Payers Encounter Date Sequence Insurance Name Policy Number Policy Huang Covered Member ID Huang Member ID Guarantor Name 07/08/2022 1 [employer] (MEDICARE REPLACEMENT PPO) [id number] Karl Pierce Kishor [id number] Lazaro Pierce Jaycevikki 07/08/2023 1 [employer] (MEDICARE REPLACEMENT PPO) [id number] Karl Pierce Jayceko [id number] Lazaro Pierce Jaycevikki 03/29/2024 1 [employer] (MEDICARE REPLACEMENT PPO) [id number] Karl Pierce Kishor [id number] Lazaro Pierce Jaycevikki 04/05/2024 1 [employer] (MEDICARE REPLACEMENT PPO) [id number] Karl Pierce Kishor [id number] Lazaro Pierce Jaycevikki Notes Date Note Type Note Provider Name and Address Organization Details Recorded Time 07/08/2022 text/html Pt is here today for his routine follow up and also a surgical clearanceHe is scheduled for Cataract surgery on 04/12/2022 with QuantumDM- diet controlled, A1c was 6.1 (12/2021) no complications,Gout- No gout flare up. stopped medsHTN- better with medsMeds- Lisinopril 20 mg dailyGERD- meds helpMeds- Dexlansoprazole 60mg daily , gets diarrhea, will change to protonixThroat cancer- s/p RT and chemo, voice is getting better or worse, CT 04/01 showed no diseaseHyperlipidemia -Hypertriglyceridemia - watching diet, under control with meds, labs 12/29Meds- Stopped taking Atorvastatin 10mg due to side effects he was having. constipation and muscle achesSmoker- has been advised to quit, has cut downAlcohol use, liver enzymes were high, got better, does not drink much, labs 04/01 Anthony Kinsey MD [address] [facility], [facility] [address], [place], [address], [place] - [facility] [employer] 07/08/2022 11:02:39 07/08/2023 text/html Pt is here today for his routine follow upPT IS NOT FASTINGDM- diet controlled, A1c was 6.1 (12/2021) no complications,Gout- No gout flare up. stopped medsHTN- better with medsMeds- Lisinopril 20 mg dailyGERD- meds helpMeds- protonixThroat cancer- s/p RT and chemo, voice is getting better or worse, CT 05/03 showed no diseaseHyperlipidemia -Hypertriglyceridemia - watching diet, under control with meds, labs dueMeds- Stopped taking Atorvastatin 10mg due to side effects he was having. constipation and muscle achesSmoker- has been advised to quit, has cut down, less than pack a dayAlcohol use, liver enzymes were high, got better, does not drink much, labs 04/01 Anthony Kinsey MD [address], [place], [address], [facility] 07/08/2023 11:22:44 03/29/2024 text/html Pt is here today for his routine follow upPT IS FASTING ( [employer] )DM- diet controlled, A1c was 6.4 (07/09/2023) no complications,Gout- No gout flare up. He has stopped meds in the pastHTN- a Little high today 152/80, compliant to medsMeds- Lisinopril 20 mg dailyGERD- meds helpMeds- Protonix 40mg dailyThroat cancer- s/p RT and chemo, voice is unchanged,Hyperlipide iftikhar-Hypertriglyceride iftikhar- watching diet, under control with meds,Meds- Stopped taking Atorvastatin 10mg due to side effects he was having. constipation and muscle achesSmoker- has been advised to quit, less than pack a dayAlcohol use, liver enzymes were high, got better, still drinks alcohol labs 04/01 Anthony Kinsey MD [address], [place], [address], [facility] 03/29/2024 09:24:28
== END 2024-04-19 06:39 | disposition home or self-care (01) ==
PROVIDERS: PCP Internal Medicine; Visit Provider Internal Medicine Hematology & Oncology
DX: J38.7 Other diseases of larynx (principal); C32.0 Malignant neoplasm of glottis
CPT/HCPCS: 70490

== ENCOUNTER 2024-04-26 13:47 | Outpatient (CLI) | payer MEDICARE, SELFPAY ==
[2024-04-26 13:58] LABS: Basophils Percent Auto 0.4 % (0.2-1.2); Eosinophils Absolute Auto 0.3 K/mm3 (0-0.3); Eosinophils Percent Auto 5.8 % (0-4.4); Hematocrit 35.8 % (42.0-52.0); Hemoglobin 11.1 g/dL (14.0-18.0); Immature Granulocyte Absolute 0.02 K/mm3 (0.00-0.031); Immature Granulocyte Percent A 0.4 % (0-0.5); Lymphocytes Absolute Auto 0.99 K/mm3 (0.9-3.2); Lymphocytes Percent Auto 20.5 % (18.3-44.2); Mean Corpuscular Hemoglobin 26.1 pg (26-34); Mean Platelet Volume 8.7 fl (7.4-10.4); Monocytes Absolute Auto 0.8 K/mm3 (0.1-0.6); Neutrophils Absolute Auto 2.7 K/mm3 (1.3-6.7); Neutrophils Percent Auto 55.9 % (45.5-73.1); Platelet Count Result 278 k/mm3 (150-375); Red Blood Count 4.26 M/mm3 (4.6-6.20); Red Cell Distribution Width 15.9 % (11.5-14.5); White Blood Count 4.8 K/mm3 (4.5-10.0)
[2024-04-26 14:01] LABS: Blood Urea Nitrogen 13 mg/dL (8-26); Carbon Dioxide 27 mmol/L (22-30); Chloride 102 mmol/L (98-109); Estimated Glomerular Filt Rate 46; Glucose 91 mg/dL (70-105); Ionized Calcium (POC) 1.15 mmol/L (1.11-1.31); Sodium 139 mmol/L (138-146)
[2024-04-26 16:45] LABS: Alanine Aminotransferase 16 U/L (6-50); Alkaline Phosphatase 68 U/L (38-126); Anion Gap 10 mmol/L (4-12); Aspartate Amino Transferase 36 U/L (17-59); Bilirubin,Total 0.5 mg/dL (0.2-1.3); Blood Urea Nitrogen 15 mg/dL (9-20); Calcium 8.9 mg/dL (8.4-10.2); Carbon Dioxide 27 mmol/L (22-30); Chloride 102 mmol/L (98-107); Estimated Glomerular Filt Rate 58; Glucose 92 mg/dL (65-110); Potassium 4.1 mmol/L (3.4-5.0); Sodium 139 mmol/L (137-145)
== END 2024-04-26 13:48 | disposition home or self-care (01) ==
LOC: ANHLAB 13:47
PROVIDERS: PCP Internal Medicine; Visit Provider Internal Medicine Hematology & Oncology
DX: C32.0 Malignant neoplasm of glottis (principal)
CPT/HCPCS: 36415; 80047; 80053; 85025

== ENCOUNTER 2024-10-28 09:49 | Outpatient (CLI) | payer MEDICARE, SELFPAY ==
--- NOTE | ~2024-10-28 | CT_ITS ---
EXAMINATION: CT soft tissue neck w con DATE: 10/28/2024 10:37 INDICATION: Cancer of the glottis TECHNIQUE: Computed tomography (CT) of the neck was performed with 75 mL Omnipaque-350 intravenous contrast. Automated exposure control and iterative reconstruction technique were employed. The dose-length product was 624.35 mGy-cm. COMPARISON: 04/19/2024 FINDINGS: Changes of bilateral intraocular lens replacement. Again seen is a chronic blowout fracture of the medial wall of the right orbit. Moderate left-sided and mild right-sided mucosal thickening at the maxillary sinuses. Mucosal thickening occluding the left ostiomeatal unit. Status post right mastoidectomy. No fluid in the middle ear cavities or mastoid air cells. Submandibular and parotid glands are normal and symmetric. Thyroid gland is unremarkable. There are scattered normal-sized lymph nodes in the neck, no lymphadenopathy. No masses identified. Atherosclerotic calcific lesions at the bilateral carotid bulbs with 10% stenosis on the right and 30% on the left by NASCET criteria. Extensive dental and periodontal disease including multiple dental caries and several dental restorations. Chronic periapical lucency surrounding the posterior most remaining bilateral mandibular molars. Normal epiglottis. There is unchanged mild symmetric mucosal thickening without nodularity at the larynx consistent with changes of chronic radiation treatment. Airway is unremarkable. Mild emphysema at the bilateral apices. Calcified right upper lobe nodules along with calcified mediastinal lymph nodes consistent with old granulomatous disease. Likely developmental anterior and posterior spinal fusion at T1-T2 mild to moderate cervical and upper thoracic spondylosis. IMPRESSION: 1. Stable mucosal thickening at the larynx consistent with change of radiation treatment. No lesion suspicious for locally recurrent or metastatic disease. Reviewed, dictated and finalized at location A.
--- OUTSIDE RECORDS SUMMARY | 2024-10-28 10:29 | XMS_ITS | Encounter Summary ---
Author Organization [facility] Address [address] [place] [address] Care Team Providers Care Rural Electrification Engineer Name Role Phone Mitch Kinsey MD Primary Care Provider [phone] Encounter Details Date Type Department Care Team (Late Contact Info) Description 05/11/2021 Chart Note [facility] Radiation Therapy [address] [place] [address] Virgilio Bagley MD [address] [facility] [address] [place] [address] Social History Tobacco Use Types Packs/Day Years Used Date Smoking Tobacco: Never Assessed Sex and Gender Information Value Date Recorded Sex Assigned at Not on file Legal Sex 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 No / Unsure 04/27/2021 10:58 AM MAINTENANCE MECHANIC ELEVATORS documented as of this encounter Plan of Treatment Upcoming Encounters Date Type Department Care Team (Late Contact Info) Description 11/04/2024 2:30 PM CDT Office Visit [facility] Oncology and Hematology - [place] [address] [place] [address] Erick Ayers MD [address] [facility] [address] [place] [address] documented as of this encounter Visit Diagnoses Not on filedocumented in this encounter Care Teams Rural Electrification Engineer Relationship Specialty Start Date End Date Mitch Kinsey MD [address] [phone] PCP - General Internal Medicine 04/19/21 documented as of this encounter
--- OUTSIDE RECORDS SUMMARY | 2024-10-28 10:29 | XMS_ITS | Clinical Summary ---
Author Organization [facility] Address [address] [place] [address] Phone Care Team Providers Care Assistant Professor Of Nursing Name Role Phone Mitch Kinsey MD Primary Care Provider [phone] Allergies No known active allergies Medications lisinopriL [...] Encounters Date Type Department Care Team Description 10/27/2024 External Device Data STL ABSTRACTION Provider, Abstract 10/19/2024 Telephone [facility] On[facility] and Hematology - [address] [facility] [address] [address] scan 10/12/2024 External Device Data STL ABSTRACTION Provider, Abstract 09/22/2024 External Device Data STL ABSTRACTION Provider, Abstract 09/22/2024 External Device Data STL ABSTRACTION Provider, Abstract 09/22/2024 External Device Data STL ABSTRACTION Provider, Abstract 08/31/2024 External Device Data STL ABSTRACTION Provider, Abstract 08/10/2024 External Device Data STL ABSTRACTION Provider, Abstract [...] on file 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 Gender Identity Not on file Sexual Orientation Not on file Last Filed Vital Signs Vital Sign Reading Time Taken Comments Blood Pressure 156/91 04/26/2024 2:22 PM GAS METER REPAIRER Pulse 63 04/26/2024 2:18 PM GAS METER REPAIRER Temperature 36.8 C (98.2 F) 04/26/2024 2:18 PM GAS METER REPAIRER Respiratory Rate 15 04/26/2024 2:18 PM GAS METER REPAIRER Oxygen Saturation 96% 04/26/2024 2:18 PM GAS METER REPAIRER Inhaled Oxygen Concentration - - Weight 86 kg (189 lb 9.6 oz) 04/26/2024 2:18 PM GAS METER REPAIRER Height 175.3 cm (5' 9) 09/23/2022 1:02 PM CDT Body Mass Index 28 09/23/2022 1:02 PM CDT Plan of Treatment Upcoming Encounters Date Type Department Care Team (Late st Contact Info) Description 11/04/2024 2:30 PM CDT Office Visit [facility] Oncology and Hematology - [place] [address] [facility] [address] [place] [address] Erick Ayers MD [address] [facility] [address] [place] [address] Health Maintenance Due Date Last Done Comments DIABETES ANNUAL FOOT EXAM 1969 DIABETES ANNUAL RETINAL EXAM 1969 DIABETES HBA1C Q 6 MONTHS 1969 DIABETES MICROALBUMIN ANNUAL SCREEN 1969 LDL CHOLESTEROL ANNUAL 1969 COLORECTAL SCREENING 1996 Colorectal Cancer Screening 1996 FIT-DNA Q 3 years 1996 FIT/FOBT Q 1 year 1996 Flex Sig/CT Colonography Q 5 years 1996 ZOSTER VACCINE (1 of 2) 2001 DTAP/TDAP/TD VACCINES (1 - Tdap) 11/18/2003 11/17/19 04 Abdominal Aortic Aneurysm (A AA) Screening 2016 INFLUENZA VACCINE (#1) 2024 RSV VACCINE (60+ or ) (1 - 1-dose 75+ series) 2026 PNEUMOCOCCAL VACCINE 50+ YEARS Completed 0 03/19/2018, 03/21/2017, 03/20/2017 Insurance Care Teams Assistant Professor Of Nursing Relationship Specialty Start Date End Date Mitch Kinsey MD [address] [facility] [address] [place] [phone] PCP - General Internal Medicine 04/19/21
--- OUTSIDE RECORDS SUMMARY | 2024-10-28 10:29 | XMS_ITS | Encounter Summary ---
Author Organization [facility] Address [address] [place] [address] Care Team Providers Care Beverage Steward Name Role Phone Mitch Kinsey MD Primary Care Provider [phone] Encounter Details Date Type Department Care Team (Late st Contact Info) Description 10/27/2024 External Device Data STL ABSTRACTION Provider, Abstract NO ADDRESS ON FILE Social History Tobacco Use Types Packs/Day Years Used Date Smoking Tobacco: Former Smokeless Tobacco: Never Alcohol Use Standard Drinks/Week Comments Yes 0 (1 standard drink = 0.6 oz pur e alcohol) Sex and Gender Information Value Date Recorded Sex Assigned at Not on file Legal Sex Male 2:37 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 DIRECTOR Gender Identity Not on file Sexual Orientation Not on file documented as of this encounter Plan of Treatment Upcoming Encounters Date Type Department Care Team (Late st Contact Info) Description 11/04/2024 2:30 PM CDT Office Visit [facility] Oncology and Hematology - [place] [address] [place] [address] [address] [place] [address] Erick Ayers MD [address] [facility] [address] [place] [address] documented as of this encounter Visit Diagnoses Not on filedocumented in this encounter Care Teams Beverage Steward Relationship Specialty Start Date End Date Mitch Kinsey MD [address] [facility] [address] [place] [phone] PCP - General Internal Medicine 04/19/21 documented as of this encounter
[2024-10-28 10:30] LABS: Estimated Glomerular Filt Rate 43
== END 2024-10-28 09:50 | disposition home or self-care (01) ==
PROVIDERS: PCP Internal Medicine; Visit Provider Internal Medicine Hematology & Oncology
DX: C32.0 Malignant neoplasm of glottis (principal); Z92.3 Personal history of irradiation
CPT/HCPCS: 70491; Q9967

== ENCOUNTER 2024-11-04 13:51 | Outpatient (CLI) | payer MEDICARE, SELFPAY ==
--- OUTSIDE RECORDS SUMMARY | 2024-11-04 13:55 | XMS_ITS | Encounter Summary ---
Author Organization [facility] Address [address] [place] [address] Care Team Providers Care Bonding Machine Operator Name Role Phone Mitch Kinsey MD Primary Care Provider [phone] Encounter Details Date Type Department Care Team (Late Contact Info) Description 05/11/2021 Chart Note [facility] Radiation Therapy [address] [place] [address] Virgilio Bagley MD [address] [facility] [address] [place] [address] Social History Tobacco Use Types Packs/Day Years Used Date Smoking Tobacco: Never Assessed Sex and Gender Information Value Date Recorded Sex Assigned at Not on file Legal Sex Male 2:37 PM SPACE TECHNOLOGIST Gender Identity Not on file Sexual Orientation Not on file COVID-19 Exposure Response Date Recorded In the last month, have you been in contact with someone who was confirmed or suspected to have Coronavirus / COVID-19? No / Unsure 04/27/2021 10:58 AM SPACE TECHNOLOGIST documented as of this encounter Plan of Treatment Upcoming Encounters Date Type Department Care Team (Late Contact Info) Description 11/04/2024 2:30 PM CDT Office Visit [facility] Oncology and Hematology - [place] [address] [place] [address] Erick Ayers MD [address] [facility] [address] [place] [address] documented as of this encounter Visit Diagnoses Not on filedocumented in this encounter Care Teams Bonding Machine Operator Relationship Specialty Start Date End Date Mitch Kinsey MD [address] [phone] PCP - General Internal Medicine 04/19/21 documented as of this encounter
--- OUTSIDE RECORDS SUMMARY | 2024-11-04 13:55 | XMS_ITS | Encounter Summary ---
Author Organization [facility] [employer] Address [address] [place] [address] Care Team Providers Care Auto Hauler Name Role Phone Mitch Kinsey MD Primary Care Provider Encounter Details Date Type Department Care Team (Late Contact Info) Description 11/01/2024 Orders Only [facility] Oncology and Hematology - [place] [address] [place] [address] Erick Ayers MD [facility] [employer] [address] [place] [address] Social History Tobacco Use Types Packs/Day Years Used Date Smoking Tobacco: Former Smokeless Tobacco: Never Alcohol Use Standard Drinks/Week Comments Yes 0 (1 standard drink = 0.6 oz pur e alcohol) Sex and Gender Information Value Date Recorded Sex Assigned at Not on file 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 Gender Identity Not on file Sexual Orientation Not on file documented as of this encounter Plan of Treatment Upcoming Encounters Date Type Department Care Team (Late Contact Info) Description 11/04/2024 2:30 PM CDT Office Visit [facility] Oncology and Hematology - [place] [address] [place] [address] Erick Ayers MD [facility] [employer] [address] [place] [address] documented as of this encounter Procedures Procedure Name Priority Date/Time Associated Diagnosis Comments CT SOFT TISSUE NECK W CONTRAST Routine 10/28/2024 11:19 AM CDT documented in this encounter Results * CT SOFT TISSUE NECK W CONTRAST (10/28/2024 11:19 AM CDT) Anatomical Region Laterality Modality Neck Computed Tomogra phy Erick Ayers MD CT ORDERABLES Final Result documented in this encounter Visit Diagnoses Not on filedocumented in this encounter Care Teams Auto Hauler Relationship Specialty Start Date End Date Mitch Kinsey MD [address] [phone] PCP - General Internal Medicine 04/19/21 documented as of this encounter
--- OUTSIDE RECORDS SUMMARY | 2024-11-04 13:55 | XMS_ITS | Clinical Summary ---
Author Organization [facility] Address [address] [place] [address] Phone Care Team Providers Care After School Tutor Name Role Phone Mitch Kinsey MD Primary Care Provider [phone] Allergies No known active allergies Medications lisinopriL [...] Encounters Date Type Department Care Team Description 11/01/2024 Orders Only [facility] Oncology and Hematology [facility] [address] [place] [phone] Erick Ayers MD 10/27/2024 External Device Data STL ABSTRACTION Provider, Abstract 10/19/2024 Telephone [facility] Oncology and Hematology [facility] [address] [place] [phone] Erick Ayers MD CT scan 10/12/2024 External [...] on file Legal Sex Male 2:37 PM WOOD ROOM SUPERVISOR Gender Identity Not on file Sexual Orientation Not on file Last Filed Vital Signs Vital Sign Reading Time Taken Comments Blood Pressure 156/91 04/26/2024 2:22 PM WOOD ROOM SUPERVISOR Pulse 63 04/26/2024 2:18 PM WOOD ROOM SUPERVISOR Temperature 36.8 C (98.2 F) 04/26/2024 2:18 PM WOOD ROOM SUPERVISOR Respiratory Rate 15 04/26/2024 2:18 PM WOOD ROOM SUPERVISOR Oxygen Saturation 96% 04/26/2024 2:18 PM WOOD ROOM SUPERVISOR Inhaled Oxygen Concentration - - Weight 86 kg (189 lb 9.6 oz) 04/26/2024 2:18 PM WOOD ROOM SUPERVISOR Height 175.3 cm (5' 9) 09/23/2022 1:02 PM CDT Body Mass Index 28 09/23/2022 1:02 PM CDT Plan of Treatment Upcoming Encounters Date Type Department Care Team (Late st Contact Info) Description 11/04/2024 2:30 PM CDT Office Visit [facility] Oncology and Hematology - [place] [address] [place] [address] [facility] [address] [place] [address] Erick Ayers MD [address] [facility] [address] [place] [address] Health Maintenance Due Date Last [...] 50+ YEARS Completed 0 03/19/2018, 03/21/2017, 03/20/2017 Procedures Procedure Name Priority Date/Time Associated Diagnosis Comments CT SOFT TISSUE NECK W CONTRAST Routine 10/28/2024 11:19 AM CDT from Last 3 Months Results * CT SOFT TISSUE NECK W CONTRAST (10/28/2024 11:19 AM CDT) Anatomical Region Laterality Modality Neck Computed Tomogra phy Erick Ayers MD CT ORDERABLES Final Result from Last 3 Months Insurance [facility] Care Teams After School Tutor Relationship Specialty Start Date End Date Mitch Kinsey MD [address] [address] PCP - General Internal Medicine 04/19/21
[2024-11-04 14:08] LABS: Hematocrit 36.9 % (42.0-52.0); Hemoglobin 11.6 g/dL (14.0-18.0); Immature Granulocyte Percent A 0.3 % (0-0.5); Lymphocytes Absolute Auto 1.25 K/mm3 (0.9-3.2); Mean Corpuscular HGB Conc 31.4 g/dl (32-36); Mean Corpuscular Hemoglobin 25.0 pg (26-34); Mean Corpuscular Volume 79.5 fl (80-100); Nucleated Red Blood Cells Absolute Auto 0.000 K/mm3 (0.0-0.012); Nucleated Red Blood Cells Perc 0.0 % (0.0-0.2); Platelet Count Result 341 k/mm3 (150-375); Red Blood Count 4.64 M/mm3 (4.6-6.20); White Blood Count 6.9 K/mm3 (4.5-10.0)
[2024-11-04 14:13] LABS: Blood Urea Nitrogen 15 mg/dL (8-26); Carbon Dioxide 27 mmol/L (22-30); Chloride 102 mmol/L (98-109); Estimated Glomerular Filt Rate 43; Glucose 82 mg/dL (70-105); Ionized Calcium (POC) 1.14 mmol/L (1.11-1.31); Potassium 3.9 mmol/L (3.5-4.9); Sodium 138 mmol/L (138-146)
[2024-11-04 16:56] LABS: Alanine Aminotransferase 13 U/L (6-50); Albumin Level 4.3 g/dL (3.5-5.1); Alkaline Phosphatase 61 U/L (38-126); Anion Gap 8 mmol/L (4-12); Aspartate Amino Transferase 33 U/L (17-59); Bilirubin,Total 0.6 mg/dL (0.2-1.3); Blood Urea Nitrogen 15 mg/dL (9-20); Calcium 9.2 mg/dL (8.4-10.2); Carbon Dioxide 26 mmol/L (22-30); Chloride 102 mmol/L (98-107); Estimated Glomerular Filt Rate 47; Glucose 81 mg/dL (65-110); Potassium 4.0 mmol/L (3.4-5.0); Sodium 136 mmol/L (137-145); Total Protein 7.3 g/dL (6.3-8.2)
== END 2024-11-04 13:52 | disposition home or self-care (01) ==
LOC: ANHLAB 13:52
PROVIDERS: PCP Internal Medicine; Visit Provider Internal Medicine Hematology & Oncology
DX: C32.0 Malignant neoplasm of glottis (principal)
CPT/HCPCS: 36415; 80047; 80053; 85025